=== PATIENT | female | born 1950 | race Caucasian/White ===

== ENCOUNTER → 2017-09-20 | Outpatient (CLI) | payer MEDICARE ==
[~2017-09-20] MED LIST: REGADENOSON 0.4 MG/5 ML DISP.SYRIN. IV
== END | disposition home or self-care (01) ==
LOC: ECHO 07:11
DX: I08.1 Rheumatic disorders of both mitral and tricuspid valves (principal); I10 Essential (primary) hypertension; E11.9 Type 2 diabetes mellitus without complications; R94.31 Abnormal electrocardiogram [ECG] [EKG]; Z79.01 Long term (current) use of anticoagulants
CPT/HCPCS: 93306; 96374; A9500

== ENCOUNTER → 2017-10-11 | Outpatient (CLI) | payer MEDICARE | END | disposition home or self-care (01) | LOC: NM 08:17 | DX: R94.31 Abnormal electrocardiogram [ECG] [EKG] (principal); I10 Essential (primary) hypertension; E11.9 Type 2 diabetes mellitus without complications | CPT/HCPCS: 93017; 93350; J1250 ==

== ENCOUNTER 2020-08-27 22:58 | Observation (INO) | payer MEDICARE ==
[~2020-08-27] VITALS: Ht 154.9 cm; Wt 56.3 kg
[~2020-08-27 22:58] MED LIST changes: +ASPI-630 PO; +GLIM2TAB7 PO; -REGADENOSON 0.4 MG/5 ML DISP.SYRIN. IV
[2020-08-28 00:22] LABS: BASO # 0.1 x10^3/uL (0.0-0.2); BASO % 1 % (0-3); EOS # 0.2 x10^3/uL (0.0-0.7); EOS % 2 % (0-3); HEMATOCRIT 37.3 % (36.0-47.0); HEMOGLOBIN 12.4 g/dL (12.0-15.5); LYMPH # 1.7 x10^3/uL (1.0-4.8); LYMPH % 20 % (24-48); MEAN CORPUSCULAR HEMOGLOBIN 29 pg (25-35); MEAN CORPUSCULAR HGB CONC 33 g/dL (31-37); MEAN CORPUSCULAR VOLUME 86 fL (79-100); MONO # 0.8 x10^3/uL (0.0-1.1); MONO % 10 % (0-9); NEUT % 68 % (31-73); PLATELET COUNT 226 x10^3/uL (140-400); RED BLOOD COUNT 4.33 x10^6/uL (3.50-5.40); RED CELL DISTRIBUTION WIDTH 14.9 % (11.5-14.5); WHITE BLOOD COUNT 8.8 x10^3/uL (4.0-11.0)
[2020-08-28 00:29] LABS: CALCIUM 9.3 mg/dL (8.5-10.1); CREATININE 0.9 mg/dL (0.6-1.0); GFR 62.1; POTASSIUM 4.2 mmol/L (3.5-5.1)
[2020-08-28] MEDS ORDERED: IV NORMAL SALINE 1000ML BAG 1,000 ML IV ONE ×2 (00:30→01:30)
[2020-08-28 00:35] LABS: ALBUMIN 3.4 g/dL (3.4-5.0); TOTAL BILIRUBIN 0.3 mg/dL (0.2-1.0); TOTAL PROTEIN 6.9 g/dL (6.4-8.2)
--- NOTE | 2020-08-28 02:07 | PHYS DOC ---
Past Medical History Past Medical History: Diabetes-Type II, Hypertension, Hypothyroid Past Surgical History: Additional Past Surgical Histo: x 4 Smoking Status: Never Smoker Alcohol Use: None General Adult EDM: Chief Complaint: SYNCOPE HPI: HPI: Patient is a 70 year old female past medical history hypertension hyperlipidemia diabetes presents for evaluation after syncopal episode. Patients dizziness started this evening. Patient states she got up to go to the bathroom but suddenly because dizzy and light headed. Patient states she felt unsteady so instead of proceeding to the bathroom she want back to bed. Later on in the evening patient attempted to go to the bathroom again and had an apparent syncopal episode. states he heard patient stumbling down the [place] hitting the russo. states patient fell into a doorway. Patient states she recalls feeling dizzy lightheaded as if she was going to pass out. Patient denies hitting her head. states patient was confused and had + LOC. On arrival patient is a/ox4. She denies headache, chest pain, or shortness of breath. Review of Systems: Review of Systems: Review of systems: Constitutional symptoms- No fever, no chills. Eyes- No Discharge, No Visual Loss Respiratory symptoms- No shortness of breath, No wheezing, No Dyspnea on Exertion Cardiovascular Systems; No chest pain, No Palpitations,Positive syncope Gastrointestinal symptoms: NO abdominal pain, no nausea, no vomiting or diarrhea. Genitourinary symptoms: No dysuria. Musculoskeletal symptoms: No back pain No extremity pain. NEUROLOGICAL Symptoms: No headache, no generalized weakness; No focal Weakness positive dizziness Heart Score: C/O Chest Pain: N/A Risk Factors: Risk Factors: DM, Current or recent (<one month) smoker, HTN, HLP, family history of CAD, obesity. Risk Scores: Score 0 - 3: 2.5% MACE over next 6 weeks - Discharge Home Score 4 - 6: 20.3% MACE over next 6 weeks - Admit for Clinical Observation Score 7 - 10: 72.7% MACE over next 6 weeks - Early Invasive Strategies Current Medications: Current Medications Medications (Trade) Dose Ordered Sig/Emeka Start Time Stop Time Status Last Admin Dose Admin Sodium Chloride 1,000 ml @ 1,000 mls/hr 1X ONCE 08/28/20 01:30 08/28/20 02:29 Allergies: Allergies: Allergies Coded Allergies Type Severity Reaction Last Updated Verified Penicillins Allergy Mild N/V 09/20/17 Yes Sulfa (Sulfonamide Antibiotics) Allergy Mild N/V 09/20/17 Yes Physical Exam: PE: Constitutional: Well developed, well nourished, no acute distress, non-toxic appearance. [] HENT: Normocephalic, atraumatic, bilateral external ears normal, oropharynx moist, no oral exudates, nose normal. [] Eyes: PERRLA, EOMI, conjunctiva normal, no discharge. [] Neck: Normal range of motion, no tenderness, supple, no stridor. [] Cardiovascular:Heart rate regular rhythm, no murmur [] Lungs & Thorax: Bilateral breath sounds clear to auscultation [] Abdomen: Bowel sounds normal, soft, no tenderness, no masses, no pulsatile masses. [] Skin: Warm, dry, no erythema, no rash. [] Back: No tenderness, no CVA tenderness. [] Extremities: No tenderness, no cyanosis, no clubbing, ROM intact, no edema. [] Neurologic: Alert and oriented X 3, normal motor function, normal sensory f unction, no focal deficits noted. [] Psychologic: Affect normal, judgement normal, mood normal. [] Current Patient Data: Labs: Laboratory Tests Test 08/28/20 00:10 White Blood Count 8.8 x10^3/uL (4.0-11.0) Red Blood Count 4.33 x10^6/uL (3.50-5.40) Hemoglobin 12.4 g/dL (12.0-15.5) Hematocrit 37.3 % (36.0-47.0) Mean Corpuscular Volume 86 fL (79-100) Mean Corpuscular Hemoglobin 29 pg (25-35) Mean Corpuscular Hemoglobin Concent 33 g/dL (31-37) Red Cell Distribution Width 14.9 % (11.5-14.5) H Platelet Count 226 x10^3/uL (140-400) Neutrophils (%) (Auto) 68 % (31-73) Lymphocytes (%) (Auto) 20 % (24-48) L Monocytes (%) (Auto) 10 % (0-9) H Eosinophils (%) (Auto) 2 % (0-3) Basophils (%) (Auto) 1 % (0-3) Neutrophils # (Auto) 6.0 x10^3/uL (1.8-7.7) Lymphocytes # (Auto) 1.7 x10^3/uL (1.0-4.8) Monocytes # (Auto) 0.8 x10^3/uL (0.0-1.1) Eosinophils # (Auto) 0.2 x10^3/uL (0.0-0.7) Basophils # (Auto) 0.1 x10^3/uL (0.0-0.2) Sodium Level 145 mmol/L (136-145) Potassium Level 4.2 mmol/L (3.5-5.1) Chloride Level 106 mmol/L (98-107) Carbon Dioxide Level 31 mmol/L (21-32) Anion Gap 8 (6-14) Blood Urea Nitrogen 21 mg/dL (7-20) H Creatinine 0.9 mg/dL (0.6-1.0) Estimated GFR (Cockcroft-Gault) 62.1 BUN/Creatinine Ratio 23 (6-20) H Glucose Level 129 mg/dL (70-99) H Calcium Level 9.3 mg/dL (8.5-10.1) Total Bilirubin 0.3 mg/dL (0.2-1.0) Aspartate Amino Transferase (AST) 17 U/L (15-37) Alanine Aminotransferase (ALT) 19 U/L (14-59) Alkaline Phosphatase 49 U/L (46-116) Troponin I Quantitative 0.024 ng/mL (0.000-0.055) Total Protein 6.9 g/dL (6.4-8.2) Albumin 3.4 g/dL (3.4-5.0) Albumin/Globulin Ratio 1.0 (1.0-1.7) Laboratory Tests 08/28/20 00:10 Laboratory Tests 08/28/20 00:10 Vital Signs: Vital Signs Date Time Temp Pulse Resp B/P (MAP) Pulse Ox O2 Delivery O2 Flow Rate FiO2 08/28/20 00:09 84 129/57 (81) 08/27/20 23:18 93 08/27/20 23:18 97.8 20 Room Air 97.8 EKG: EK hrs. EKG Heart rate 86 sinus rhythm intraventricular block no ST elevation no ST depression no acute [place] [] Radiology/Procedures: Radiology/Procedures: [] Impression: FINDINGS: No acute intracranial hemorrhage. No mass effect, midline shift or hydrocephalus. Isaac-white matter differentiation is maintained. Unremarkable calvarium. No layering fluid seen within the visualized paranasal sinuses. Unremarkable mastoid air cells and middle ears. IMPRESSION: No acute intracranial abnormality by CT. Course & Med Decision Making: Course & Med Decision Making Pertinent Labs and Imaging studies reviewed. (See chart for details) [] Patient was evaluated for chief complaint. Work-up consisted of laboratory analysis radiologic imaging and EKG. Results reviewed and discussed with patient. CT imaging head no acute abnormalities chest x-ray BNP > 400 DDimer - >1 CTA chest ordered and pending. Patient admitted to hospitalist. Lane Disclaimer: Lane Disclaimer: This electronic medical record was generated, in whole or in part, using a voice recognition dictation system. Departure Departure Impression: Primary Impression: Syncope and collapse Additional Impressions: Dehydration Orthostatic hypotension Disposition: ADMITTED INPATIENT Admitting Physician: JEFFERY Condition: STABLE Referrals: UNKNOWN PCP NAME (PCP) KAYLA PERES DO Aug 28, 2020 02:07
[2020-08-28] MEDS ORDERED: ONDANSETRON PF 4 MG/2 ML VIAL. IV PRN ×2 (02:15→09:30)
--- NOTE | 2020-08-28 02:56 | RAD ---
STUDY: CT head without contrast INDICATION: Syncope. COMPARISON: None. TECHNIQUE: Axial CT imaging through the head without the use of intravenous contrast. Sagittal and co guillermo reformats were obtained. One or more of the following individualized dose reduction techniques were utilized for this examinat ion: 1. Automated exposure control 2. Adjustment of the mA and/or kV according to patient size 3. Use of iterative reconstruction technique. FINDINGS: No acute intracranial hemorrhage. No mass effect, midline shift or hydrocephalus. Isaac-white matter d ifferentiation is maintained. Unremarkable calvarium. No layering fluid seen within the visualized paranasal sinuses. Unremarkable mastoid air cells and middle ears. IMPRESSION: No acute intracranial abnormality by CT. Electronically signed by: POLO RAMESH MD (08/28/2020 2:54 AM) [facility]
--- NOTE | 2020-08-28 03:20 | RAD ---
Study: XR CHEST 1V Indication: Dyspnea. Comparison: None. Findings: The cardiomediastinal silhouette is enlarged. Aortic calcific atherosclerosis. No lobar consolidation or pneumothorax. Poor visualization of the left costophrenic angle favored sec ondary to summation artifact. Normally visualized costophrenic angle on the right. Minimally increase d interstitial markings and peribronchial cuffing. Impression: Enlargement of the cardiomediastinal silhouette and minimal interstitial prominence and peribronchial cuffing. The findings suggest mild interstitial edema. Electronically signed by: POLO RAMESH MD (08/28/2020 3:17 AM) [facility]
[2020-08-28] MEDS ORDERED: IOHEXOL 350 MG/ML 100 ML VIAL. IV ONE (04:30)
[2020-08-28] MEDS ORDERED: CONTRAST GIVEN. MC PRN (04:30)
[2020-08-28] MEDS ORDERED: ATOR10TA60 PO (05:27)
[2020-08-28] MEDS ORDERED: PIOG15TA63 PO (05:27)
[2020-08-28] MEDS ORDERED: LEVO75TA5 PO (05:27)
[2020-08-28] MEDS ORDERED: CALC0.25 PO (05:27)
[2020-08-28] MEDS ORDERED: LISI2.5T PO (05:27)
[2020-08-28] MEDS ORDERED: FLUT16SP NS (05:27)
[2020-08-28] MEDS ORDERED: FURO20TA3 PO (05:27)
[2020-08-28 07:00] VITALS: BP 158/68
--- NOTE | 2020-08-28 07:59 | RAD ---
EXAM: CT angiography of the chest with intravenous contrast. HISTORY: Syncope. Elevated d-dimer. TECHNIQUE: Computed tomographic images of the chest were obtained following the administration of int ravenous contrast according to angiography protocol. Multiplanar reformatting was performed and three dimensional maximum intensity projection images were obtained. *One or more of the following individualized dose reduction techniques were utilized for this examina tion: 1. Automated exposure control. 2. Adjustment of the mA and/or kV according to patient size. 3. Use of iterative reconstruction technique. COMPARISON: None. FINDINGS: There is no evidence of pulmonary metastases. The aorta is normal in caliber. There is no a ortic dissection. The heart is upper normal in size. No convincing lymphadenopathy is seen. There is no pneumothorax or pleural effusion. There is mild biapical pleural parenchymal scarring. There is bi lateral posterior dependent and basilar atelectasis. No consolidation is seen. No suspicious pulmonar y nodule is seen. There is no acute finding involving the upper abdomen. There is no suspicious osseo us lesion. IMPRESSION: 1. No evidence of pulmonary embolism or alternative acute thoracic finding. 2. Bilateral posterior dependent and basilar atelectasis. Electronically signed by: Monica Adam MD (08/28/2020 7:57 AM) [id number]
--- NOTE | 2020-08-28 09:07 | PDOC1 ---
History and Physical Date of Admission Date of Admission DATE: 08/28/20 TIME: 09:05 Identification/Chief Complaint Chief Complaint syncope with very briefLOC 4-23 pm, dizziness, fatigue History of Present Illness History of Present Illness 70 year old female past medical history hypertension hyperlipidemia diabetes presents for evaluation after brief syncopal episode. Patients dizziness start ed last evening. , states she got up to go to the bathroom but suddenly because dizzy and light headed. she felt unsteady so instead of proceeding to the bathroom she went back to bed., later had a syncopal episode on second trip to bathroom states patient was confused and had + very brief LOC does't think she was totally out, no seizure activity noted by him.// CTA CHEST NEG FOR PE, ECHO 2018 REVIEWED c/w diastolic chf, MILD TROPONIN I ELEVATION NOTED, no tongue biting noted by patient Cardiology and neurology consulted, d-dimer 1.16, glucose 129 here old records reviewed she has felt tired for several months, has had chronic low back pain plan= admit, troponin trend, consults to cardiology, neurology will doppler carotids, plan echo, neurochecks q 4 hrs, monitor for orthostasis, tele bed Past Medical History Cardiovascular: HTN, Syncope Pulmonary: No pertinent hx Heme/Onc: No pertinent hx Hepatobiliary: No pertinent hx Psych: No pertinent hx Musculoskeletal: Osteoarthritis Infectious disease: No pertinent hx ENT: No pertinent hx Renal/: Chronic renal insuff Endocrine: Diabetes Family History Family History: Hypertension Social History Smoke: No ALCOHOL: none Drugs: None Current Problem List Problem List Problems Medical Problems: (1) Dehydration Status: Acute (2) Orthostatic hypotension Status: Acute (3) Syncope and collapse Status: Acute Current Medications Current Medications Current Medications Sodium Chloride 1,000 ml @ 1,000 mls/hr 1X ONCE IV Last administered on 08/28/20at 00:15; Start 08/28/20 at 00:30; Stop 08/28/20 at 01:29; Status DC Sodium Chloride 1,000 ml @ 1,000 mls/hr 1X ONCE IV Last administered on 08/28/20at 02:19; Start 08/28/20 at 01:30; Stop 08/28/20 at 02:29; Status DC Ondansetron HCl (Zofran) 4 mg PRN Q8HRS PRN IV NAUSEA/VOMITING 1ST CHOICE; Start 08/28/20 at 02:15; Stop 08/29/20 at 02:14 Iohexol (Omnipaque 350 Mg/ml) 100 ml 1X ONCE IV Last administered on 08/28/20at 06:10; Start 08/28/20 at 04:30; Stop 08/28/20 at 04:31; Status DC Info (CONTRAST GIVEN -- Rx MONITORING) 1 each PRN DAILY PRN MC SEE COMMENTS; Start 08/28/20 at 04:30; Stop 08/30/20 at 04:29 Active Scripts Active Reported Fluticasone Propionate Nasal Anthon (Fluticasone Propionate) 16 Gm Anthon.susp 2 Sprays NS DAILY PRN Levothyroxine Sodium 75 Mcg Tablet 1 Tab PO QAM Lisinopril 2.5 Mg Tablet 1 Tab PO DAILY Pioglitazone Hcl 15 Mg Tablet 1 Tab PO DAILY Atorvastatin Calcium 10 Mg Tablet 1 Tab PO DAILY Furosemide 20 Mg Tablet 1 Tab PO DAILY Calcitriol 0.25 Mcg Capsule 1 Cap PO DAILY Aspirin 81 Mg Tab.chew 1 Tab PO DAILY Allergies Allergies: Coded Allergies: Penicillins (Verified Allergy, Mild, N/V, 09/20/17) Sulfa (Sulfonamide Antibiotics) (Verified Allergy, Mild, N/V, 09/20/17) ROS General: No: Chills, Night Sweats, Fatigue, Malaise, Appetite, Other PSYCHOLOGICAL ROS: No: Anxiety, Behavioral Disorder, Concentration difficultie, Decreased libido, Depression, Disorientation, Hallucinations, Hostility, Irritablity, Memory difficulties, Mood Swings, Obsessive thoughts, Physical abuse, Sexual abuse, Sleep disturbances, Suicidal ideation, Other Eyes: No Blurry vision, No Decreased vision, No Double vision, No Dry eyes, No Excessive tearing, No Eye Pain, No Itchy Eyes, No Loss of vision, No Photophobia, No Scotomata, No Uses contacts, No Uses glasses, No Other HEENT: No: Heacaches, Visual Changes, Hearing change, Nasal congestion, Nasal discharge, Oral lesions, Sinus pain, Sore Throat, Epistaxis, Sneezing, Snoring, Tinnitus, Vertigo, Vocal changes, Other ALLERGY AND IMMUNOLOGY: YES: Hives; No: Insect Bite Sensitivity, Itchy/Watery Eyes, Nasal Congestion, Post Nasal Drip, Seasonal Allergies, Other Hematological and Lymphatic: No: Bleeding Problems, Blood Clots, Blood Transfusions, Brusing, Night Sweats, Pallor, Swollen Lymph Nodes, Other ENDOCRINE: No: Breast Changes, Galactorrhea, Hair Pattern Changes, Hot Flashes, Malaise/lethargy, Mood Swings, Palpitations, Polydipsia/polyuria, Skin Changes, Temperature Intolerance, Unexpected Weight Changes, Other Respiratory: No: Cough, Hemoptysis, Orthopnea, Pleuritic Pain, Shortness of breath, SOB with excertion, Sputum Changes, Stridor, Tachypnea, Wheezing, Other Cardiovascular: No Chest Pain, No Palpitations, No Orthopnea, No Paroxysmal Noc. Dyspnea, No Edema, No Lt Headedness, No Other Gastrointestinal: No Nausea, No Vomiting, No Abdominal Pain, No Diarrhea, No Constipation, No Melena, No Hematochezia, No Other Musculoskeletal: Yes Gait Disturbance Neurological: Yes Dizziness; No Behavorial Changes, No Bowel/Bladder ControlChng, No Confusion, No Gait Disturbance, No Headaches, No Impaired Coord/balance, No Memory Loss, No Numbness/Tingling, No Seizures, No Speech Problems, No Tremors, No Visual Changes, No Weakness, No Other Skin: No Dry Skin, No Eczema, No Hair Changes, No Lumps, No Mole Changes, No Mottling, No Nail Changes, No Pruritus, No Rash, No Skin Lesion Changes, No Other, No Acne Physical Exam Physical Exam Constitutional: Well developed, well nourished, no acute distress, non-toxic appearance. [] HENT: Normocephalic, atraumatic, bilateral external ears normal, oropharynx moist, no oral exudates, nose normal. [] Eyes: PERRLA, EOMI, conjunctiva normal, no discharge. [] Neck: Normal range of motion, no tenderness, supple, no stridor. [] Cardiovascular:Heart rate regular rhythm, no murmur [] Lungs & Thorax: Bilateral breath sounds clear to auscultation [] Abdomen: Bowel sounds normal, soft, no tenderness, no masses, no pulsatile masses. [] Skin: Warm, dry, no erythema, no rash. [] Back: No tenderness, no CVA tenderness. [] Extremities: No tenderness, no cyanosis, no clubbing, ROM intact, no edema. [] Neurologic: Alert and oriented X 3, normal motor function, normal sensory function, no focal deficits noted. [] Psychologic: Affect normal, judgment normal, mood normal. [] General: Alert, Oriented X3, Cooperative Breasts: Not examined Abdomen: Normal bowel sounds, Soft Rectal Exam: not examined Extremities: No cyanosis Neuro: Normal speech, Cranial nerves 3-12 NL Psych/Mental Status: Mental status NL, Mood NL Vitals Vitals Vital Signs Date Time Temp Pulse Resp B/P (MAP) Pulse Ox O2 Delivery O2 Flow Rate FiO2 08/28/20 07:00 98.3 80 17 158/68 (98) 99 Nasal Cannula 2.0 98.3 Labs Labs Laboratory Tests Test 08/28/20 00:10 08/28/20 06:30 White Blood Count 8.8 x10^3/uL (4.0-11.0) Red Blood Count 4.33 x10^6/uL (3.50-5.40) Hemoglobin 12.4 g/dL (12.0-15.5) Hematocrit 37.3 % (36.0-47.0) Mean Corpuscular Volume 86 fL (79-100) Mean Corpuscular Hemoglobin 29 pg (25-35) Mean Corpuscular Hemoglobin Concent 33 g/dL (31-37) Red Cell Distribution Width 14.9 % (11.5-14.5) Platelet Count 226 x10^3/uL (140-400) Neutrophils (%) (Auto) 68 % (31-73) Lymphocytes (%) (Auto) 20 % (24-48) Monocytes (%) (Auto) 10 % (0-9) Eosinophils (%) (Auto) 2 % (0-3) Basophils (%) (Auto) 1 % (0-3) Neutrophils # (Auto) 6.0 x10^3/uL (1.8-7.7) Lymphocytes # (Auto) 1.7 x10^3/uL (1.0-4.8) Monocytes # (Auto) 0.8 x10^3/uL (0.0-1.1) Eosinophils # (Auto) 0.2 x10^3/uL (0.0-0.7) Basophils # (Auto) 0.1 x10^3/uL (0.0-0.2) D-Dimer (Dayanna) 1.16 ug/mlFEU (0.00-0.50) Sodium Level 145 mmol/L (136-145) Potassium Level 4.2 mmol/L (3.5-5.1) Chloride Level 106 mmol/L (98-107) Carbon Dioxide Level 31 mmol/L (21-32) Anion Gap 8 (6-14) Blood Urea Nitrogen 21 mg/dL (7-20) Creatinine 0.9 mg/dL (0.6-1.0) Estimated GFR (Cockcroft-Gault) 62.1 BUN/Creatinine Ratio 23 (6-20) Glucose Level 129 mg/dL (70-99) Calcium Level 9.3 mg/dL (8.5-10.1) Total Bilirubin 0.3 mg/dL (0.2-1.0) Aspartate Amino Transf (AST/SGOT) 17 U/L (15-37) Alanine Aminotransferase (ALT/SGPT) 19 U/L (14-59) Alkaline Phosphatase 49 U/L (46-116) Troponin I Quantitative 0.024 ng/mL (0.000-0.055) 0.088 ng/mL (0.000-0.055) JH-Dll-E-Type Natriuretic Peptide 459 pg/mL (0-124) Total Protein 6.9 g/dL (6.4-8.2) Albumin 3.4 g/dL (3.4-5.0) Albumin/Globulin Ratio 1.0 (1.0-1.7) Laboratory Tests Test 08/28/20 00:10 08/28/20 06:30 White Blood Count 8.8 x10^3/uL (4.0-11.0) Red Blood Count 4.33 x10^6/uL (3.50-5.40) Hemoglobin 12.4 g/dL (12.0-15.5) Hematocrit 37.3 % (36.0-47.0) Mean Corpuscular Volume 86 fL (79-100) Mean Corpuscular Hemoglobin 29 pg (25-35) Mean Corpuscular Hemoglobin Concent 33 g/dL (31-37) Red Cell Distribution Width 14.9 % (11.5-14.5) Platelet Count 226 x10^3/uL (140-400) Neutrophils (%) (Auto) 68 % (31-73) Lymphocytes (%) (Auto) 20 % (24-48) Monocytes (%) (Auto) 10 % (0-9) Eosinophils (%) (Auto) 2 % (0-3) Basophils (%) (Auto) 1 % (0-3) Neutrophils # (Auto) 6.0 x10^3/uL (1.8-7.7) Lymphocytes # (Auto) 1.7 x10^3/uL (1.0-4.8) Monocytes # (Auto) 0.8 x10^3/uL (0.0-1.1) Eosinophils # (Auto) 0.2 x10^3/uL (0.0-0.7) Basophils # (Auto) 0.1 x10^3/uL (0.0-0.2) D-Dimer (Dayanna) 1.16 ug/mlFEU (0.00-0.50) Sodium Level 145 mmol/L (136-145) Potassium Level 4.2 mmol/L (3.5-5.1) Chloride Level 106 mmol/L (98-107) Carbon Dioxide Level 31 mmol/L (21-32) Anion Gap 8 (6-14) Blood Urea Nitrogen 21 mg/dL (7-20) Creatinine 0.9 mg/dL (0.6-1.0) Estimated GFR (Cockcroft-Gault) 62.1 BUN/Creatinine Ratio 23 (6-20) Glucose Level 129 mg/dL (70-99) Calcium Level 9.3 mg/dL (8.5-10.1) Total Bilirubin 0.3 mg/dL (0.2-1.0) Aspartate Amino Transf (AST/SGOT) 17 U/L (15-37) Alanine Aminotransferase (ALT/SGPT) 19 U/L (14-59) Alkaline Phosphatase 49 U/L (46-116) Troponin I Quantitative 0.024 ng/mL (0.000-0.055) 0.088 ng/mL (0.000-0.055) EW-Pxj-A-Type Natriuretic Peptide 459 pg/mL (0-124) Total Protein 6.9 g/dL (6.4-8.2) Albumin 3.4 g/dL (3.4-5.0) Albumin/Globulin Ratio 1.0 (1.0-1.7) Images Images Pulmonary Vein S1 Velocity 64.9cm/s D2 Velocity 48.1cm/s LEFT VENTRICLE The left ventricle is normal size. There is normal left ventricular wall thickness. The left ventricular systolic function is estimated at 50%. Abnormal septal motion probably from bundle branch block. Transmitral Doppler flow p attern is Grade I-abnormal relaxation pattern. RIGHT VENTRICLE The right ventricle is normal size. The right ventricle is mildly hypertrophied. The right ventricular systolic function is normal. ATRIA The left atrium size is normal. The right atrium size is normal. The interatrial septum is intact with no evidence for an atrial septal defect or patent foramen ovale as noted on 2-D or Doppler imaging. AORTIC VALVE The aortic valve is thickened but opens well. Doppler and Color Flow revealed no significant aortic regurgitation. There is no significant aortic valvular stenosis. There is no aortic valvular vegetation. MITRAL VALVE The mitral valve is thickened but opens well. There is no evidence of mitral valve prolapse. There is no mitral valve stenosis. Doppler and Color-flow revealed mild mitral regurgitation. TRICUSPID VALVE The tricuspid valve leaflets are thickened , but open well. Doppler and Color Flow revealed trace tricuspid regurgitation. There is no tricuspid valve prolapse or vegetation. There is no tricuspid valve stenosis. PULMONIC VALVE The pulmonic valve is not well visualized. Doppler and Color Flow revealed mild pulmonic valvular regurgitation. There is no pulmonic valvular stenosis. GREAT VESSELS The aortic root is normal in size. The IVC is normal in size and collapses >50% with inspiration. PERICARDIAL EFFUSION There is no pleural effusion. There is no evidence of significant pericardial effusion. Critical Notification Critical Value: No <Conclusion> Abnormal septal motion probably from bundle branch block. The left ventricular systolic function is estimated at 50%. Transmitral Doppler flow pattern is Grade I-abnormal relaxation pattern. Mild mitral regurgitation. Trace tricuspid regurgitation. There is no evidence of significant pericardial effusion. Signed by : Ashlee Cano, Electronically Approved : 09/20/2017 09:47:43 DICTATED and SIGNED BY: ASHLEE CANO MD DATE: 09/20/17 0947 PROCEDURE: CT HEAD WO CONTRAST STUDY: CT head without contrast INDICATION: Syncope. COMPARISON: None. TECHNIQUE: Axial CT imaging through the head without the use of intravenous contrast. Sagittal and coronal reformats were obtained. One or more of the following individualized dose reduction techniques were utilized for this examination: 1. Automated exposure control 2. Adjustment of the mA and/or kV according to patient size 3. Use of iterative reconstruction technique. FINDINGS: No acute intracranial hemorrhage. No mass effect, midline shift or hydrocephalus. Isaac-white matter differentiation is maintained. Unremarkable calvarium. No layering fluid seen within the visualized paranasal sinuses. Unremarkable mastoid air cells and middle ears. IMPRESSION: No acute intracranial abnormality by CT. Electronically signed by: POLO RAMESH MD (08/28/2020 2:54 AM) [facility] DICTATED and SIGNED BY: POLO RAMESH MD EXAM: CT angiography of the chest with intravenous contrast. HISTORY: Syncope. Elevated d-dimer. TECHNIQUE: Computed tomographic images of the chest were obtained following the administration of intravenous contrast according to angiography protocol. Multiplanar reformatting was performed and three dimensional maximum intensity projection images were obtained. *One or more of the following individualized dose reduction techniques were utilized for this examination: 1. Automated exposure control. 2. Adjustment of the mA and/or kV according to patient size. 3. Use of iterative reconstruction technique. COMPARISON: None. FINDINGS: There is no evidence of pulmonary metastases. The aorta is normal in caliber. There is no aortic dissection. The heart is upper normal in size. No convincing lymphadenopathy is seen. There is no pneumothorax or pleural effusion. There is mild biapical pleural parenchymal scarring. There is bilateral posterior dependent and basilar atelectasis. No consolidation is seen. No suspicious pulmonary nodule is seen. There is no acute finding involving the upper abdomen. There is no suspicious osseous lesion. IMPRESSION: 1. No evidence of pulmonary embolism or alternative acute thoracic finding. 2. Bilateral posterior dependent and basilar atelectasis. Electronically signed by: Monica Samson MD (08/28/2020 7:57 AM) [id number] DICTATED and SIGNED BY: MONICA SAMSON MD DATE: 08/28/20 [id number] VTE Prophylaxis Ordered VTE Prophylaxis Devices: No VTE Pharmacological Prophylaxi: Yes Assessment/Plan Assessment/Plan IMPRESSION: syncopal event 4-23, brief LOC 1. No pulmonary embolism or acute thoracic finding. on CTA chest 2. Bilateral posterior dependent and basilar atelectasis. 3. syncope No acute intracranial abnormality by CT. 4-23 PM, concern for orthostasis, low suspicion for seizure 4. HX DIASTOLIC CHF Left ventricular systolic function is estimated at 50%.Grade I-abnormal relaxation pattern. ON echo 2018 Dobutamine infusion stress echocardiogram did not show any evidence of ischemia or infarct. 2018 5. minimal troponin i elevation, suspect type 2 myocardial strain 6. Diabetes type 2, question of hypoglycemia related to syncope 7. hypertension plan admit tele, OBSERVATION consult cardiology neurochecks q 4 hrs echo neurology consult accuchecks orthostatic bp and pulse bid home meds PT/OT/ST SS INSULIN ADA DIET BEDREST DOPPLER CAROTIDS dvt prophylaxis venous doppler legs IS ua a1c FREE T4 D/W ER DR D/W IN ROOM Justifications for Admission Other Justification KENTRELL BUTLER MD Aug 28, 2020 09:07
[2020-08-28] MEDS ORDERED: ACETAMINOPHEN 325 MG TABLET. PO PRN (09:30)
[2020-08-28] MEDS ORDERED: DEXTROSE 50% 25 GM / 50ML DISP.SYRIN. IV PRN (09:30)
[2020-08-28] MEDS ORDERED: ALBUTEROL SULFATE 2.5 MG/3 ML NEBU. NEB PRN (09:30)
[2020-08-28] MEDS ORDERED: MAG HYDROX/ALUMINUM HYD/SIMETH 30 ML ORAL.SUSP PO PRN (09:30)
[2020-08-28] MEDS ORDERED: FLUTICASONE 50MCG/NASAL SPRAY 16GM BOTTLE. NS PRN (09:30)
[2020-08-28] MEDS ORDERED: 0.9 % SODIUM CHLORIDE 10 ML DISP.SYRIN. IV PRN (09:30)
[2020-08-28] MEDS ORDERED: guaiFENesin ORAL 200 MG/10 ML LIQUID. PO PRN (09:30)
[2020-08-28] MEDS ORDERED: DOCUSATE SODIUM 100 MG CAPSULE. PO PRN (09:30)
[2020-08-28] MEDS ORDERED: SODIUM PHOSPHATES 19/7GM 133 ML ENEMA. PR PRN (09:30)
[2020-08-28] MEDS ORDERED: FUROSEMIDE 20 MG TABLET PO SCH (10:00)
[2020-08-28] MEDS: PIOGLITAZONE 15 MG TABLET. PO SCH (10:04)
[2020-08-28] MEDS: ASPIRIN CHEWABLE 81 MG TABLET. PO SCH (10:04)
[2020-08-28] MEDS: CALCITRIOL 0.25 MCG CAPSULE. PO SCH (10:04)
[2020-08-28] MEDS: ATORVASTATIN CALCIUM 10 MG TABLET. PO SCH (10:05)
[2020-08-28] MEDS: LISINOPRIL 5 MG TABLET. PO SCH (10:05)
[2020-08-28] MEDS: LEVOTHYROXINE 75 MCG TABLET PO SCH (10:05)
--- NOTE | 2020-08-28 10:47 | RAD ---
EXAM: Bilateral lower extremity venous Doppler sonogram. HISTORY: Pain and swelling. TECHNIQUE: Isaac scale and color Doppler sonographic evaluation of the bilateral lower extremity veins with spectral waveform analysis was performed. FINDINGS: There is normal color flow, normal compressibility and there are normal spectral waveforms in the common femoral, superficial femoral, popliteal, posterior tibial and greater saphenous veins. IMPRESSION: No Doppler evidence of lower extremity deep venous thrombosis. Electronically signed by: Monica Adam MD (08/28/2020 10:45 AM) [id number]
--- NOTE | 2020-08-28 10:51 | RAD ---
BILATERAL DUPLEX CAROTID SONOGRAPHY History: Reason: syncope Technique: Duplex sonography of the cervical portion of both carotid arteries was performed. Real-stanislav e grayscale, color flow Doppler, and Doppler spectral waveform analysis is performed. Findings: Right side: Peak systolic flow velocity of the CCA is 53 cm/sec. Peak systolic flow velocity of the ICA is 479 cm/sec. The ICA/CCA ratio is 8.2. Peak end diastolic flow velocity of the ICA is 111 cm/sec. The peak systolic velocity of the ECA is 214 cm/sec. There is moderate echogenic plaque in the carotid bulb. Left side: Peak systolic flow velocity of the CCA is 93 cm/sec. Peak systolic flow velocity of the ICA is 210 cm/sec. The ICA/CCA ratio is 2.3. Peak end diastolic flow velocity of the ICA is 63 cm/sec. Peak systolic flow velocity of the ECA is 154 cm/sec. There is severe echogenic plaque in the carotid bulb. Vertebral arteries: Bilateral vertebral arteries demonstrate antegrade flow. IMPRESSION: 1. Findings indicate a greater than 70 percent stenosis of the right internal carotid artery. [place] is is suspected to be high-grade. 2. Findings suggest a 50-69 percent stenosis of the left ICA. PQRS Compliance Statement - Stenosis calculations for CT, MR and conventional angiography are based u river measurement of the distal ICA diameter in accordance with the NASCET methodology. Stenosis calcu lations for carotid ultrasound studies are derived from validated velocity criteria which are known t o correlate with the NASCET methodology. Electronically signed by: Wayne Vigil MD (08/28/2020 10:49 AM) [id number]
[2020-08-28 11:00] VITALS: BP 152/70
--- NOTE | 2020-08-28 11:39 | EKG ---
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
--- NOTE | 2020-08-28 11:48 | EKG ---
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
[2020-08-28 12:16] VITALS: BP_SYST 126; BP_SYST 197; BP_DIAS 56; BP_DIAS 64
[2020-08-28] MEDS: INSULIN LISPRO 300 UNITS/3 ML VIAL. SQ SCH ×2 (13:07→16:36)
--- NOTE | 2020-08-28 13:09 | PDOC2 ---
NEUROLOGY CONSULT Date of Service DOS: DATE: 08/28/20 TIME: 13:03 Reason for Consult Reason for Consult: Syncope Referring Physician Referring Physician: Dr. Guillermo Source Source: Chart review, Patient History of Present Illness History of Present Illness The patient is a 70-year-old right-handed female who admits that she did not have much to eat yesterday. She skipped breakfast and lunch, then had dinner. She got up in the middle of the night and felt ill. She got up from the bed quickly and felt faint, so laid back down. Then she got right back up. She made it to the door and fell against it. Her heard the door violently open. She slid down the door. She was confused and was completely unconscious for a few moments. No one witnessed any seizure activity or focal neurological issues. Patient remembers fainting once when she was in college, she was ill at that time as well. She feels much better this morning. Past Medical History Cardiovascular: HTN Musculoskeletal: Osteoarthritis Endocrine: Diabetes, Hypothyroidism Past Surgical History Past Surgical History: Family History Family History: Cancer Social History Social History , no alcohol or tobacco, retired Current Medications Current Medications Current Medications Sodium Chloride 1,000 ml @ 1,000 mls/hr 1X ONCE IV Last administered on 08/28/20at 00:15; Start 08/28/20 at 00:30; Stop 08/28/20 at 01:29; Status DC Sodium Chloride 1,000 ml @ 1,000 mls/hr 1X ONCE IV Last administered on at 02:19; Start 08/28/20 at 01:30; Stop 08/28/20 at 02:29; Status DC Ondansetron HCl (Zofran) 4 mg PRN Q8HRS PRN IV NAUSEA/VOMITING 1ST CHOICE; Start 08/28/20 at 02:15; Stop 08/28/20 at 09:31; Status DC Iohexol (Omnipaque 350 Mg/ml) 100 ml 1X ONCE IV Last administered on 08/28/20at 06:10; Start 08/28/20 at 04:30; Stop 08/28/20 at 04:31; Status DC Info (CONTRAST GIVEN -- Rx MONITORING) 1 each PRN DAILY PRN MC SEE COMMENTS; Start 08/28/20 at 04:30; Stop 08/30/20 at 04:29 Aspirin (Aspirin Chewable) 81 mg DAILY PO Last administered on 08/28/20at 10:04; Start 08/28/20 at 10:00 Atorvastatin Calcium (Lipitor) 10 mg DAILY PO Last administered on 08/28/20at 10:05; Start 08/28/20 at 10:00 Calcitriol (Rocaltrol) 0.25 mcg DAILY PO Last administered on 08/28/20at 10:04; Start 08/28/20 at 10:00 Fluticasone Propionate (Flonase) 2 spray DAILY PRN NS ALLERGIES; Start 08/28/20 at 09:30 Furosemide (Lasix) 20 mg DAILY PO Last administered on 08/28/20 10:04; Start 08/28/20 at 10:00 Levothyroxine Sodium (Synthroid) 75 mcg DAILY06 PO Last administered on 08/28/20 10:05; Start 08/28/20 at 10:00 Pioglitazone HCl (Actos) 15 mg DAILY PO Last administered on 08/28/20at 10:04; Start 08/28/20 at 10:00 Lisinopril (Prinivil) 2.5 mg DAILY PO Last administered on 08/28/20 10:05; Start 08/28/20 at 10:00 Sodium Chloride (Normal Saline Flush) 3 ml QSHIFT PRN IV AFTER MEDS AND BLOOD DRAWS; Start 08/28/20 at 09:30 Ondansetron HCl (Zofran) 4 mg PRN Q4HRS PRN IV NAUSEA/VOMITING; Start 08/28/20 at 09:30 Acetaminophen (Tylenol) 650 mg PRN Q4HRS PRN PO TEMP OVER 100.4F OR MILD PAIN; Start 08/28/20 at 09:30 Al Hydroxide/Mg Hydroxide (Mylanta Plus Xs) 30 ml PRN DAILY PRN PO HEARTBURN / GAS; Start 08/28/20 at 09:30 Sodium Monofluorophosphate (Fleet Adult) 133 ml PRN DAILY PRN [place] CONSTIPATION; Start 08/28/20 at 09:30 Docusate Sodium (Colace) 100 mg PRN BID PRN PO HARD STOOLS; Start 08/28/20 at 09:30 Albuterol Sulfate (Ventolin Neb Soln) 2.5 mg PRN Q4HRS PRN NEB SHORTNESS OF BREATH; Start 08/28/20 at 09:30 Guaifenesin (Robitussin) 200 mg PRN Q4HRS PRN PO COUGH; Start 08/28/20 at 09:30 Enoxaparin Sodium (Lovenox 40mg Syringe) 40 mg Q24H SQ ; Start 08/28/20 at 16:00 Insulin Human Lispro (HumaLOG) 0-5 UNITS TIDWMEALS SQ ; Start 08/28/20 at 12:00 Dextrose (Dextrose 50%-Water Syringe) 12.5 gm PRN Q15MIN PRN IV SEE COMMENTS; Start 08/28/20 at 09:30 Active Scripts Active Reported Fluticasone Propionate Nasal [place] (Fluticasone Propionate) 16 Gm [place].susp 2 Sprays NS DAILY PRN Levothyroxine Sodium 75 Mcg Tablet 1 Tab PO QAM Lisinopril 2.5 Mg Tablet 1 Tab PO DAILY Pioglitazone Hcl 15 Mg Tablet 1 Tab PO DAILY Atorvastatin Calcium 10 Mg Tablet 1 Tab PO DAILY Furosemide 20 Mg Tablet 1 Tab PO DAILY Calcitriol 0.25 Mcg Capsule 1 Cap PO DAILY Aspirin 81 Mg Tab.chew 1 Tab PO DAILY Allergies Allergies: Coded Allergies: Penicillins (Verified Allergy, Mild, N/V, 09/20/17) Sulfa (Sulfonamide Antibiotics) (Verified Allergy, Mild, N/V, 09/20/17) ROS Review of System Negative for fever, chills, weight loss, shortness of breath, chest pain, indigestion, hematochezia, melena, and dysuria. Full 14-point review of systems is negative. Physical Exam Physical Examination General: Well-developed, well-nourished white female in no acute distress HEENT: Normocephalic andatraumatic. Temporal arteriespulsatile and nontender. Neck: Supple without bruit, no meningismus Musculoskeletal: Stability:see neurologic. Gait exam:see neurologic. Tone:see neurologic.Strength:see neurologic. Neurological: Mental Status:intact, orientation, memory, attention span/concentration, language, fund of knowledge normal. Cranial Nerves:Pupils equal and reactive to light, extraocular movements areintact, visual fan are full to confrontation. Facial sensation is normal. There is no facial asymmetry. Vestibulo-ocular reflex is intact. Palate elevates and tongue protrudes in midline. All other cranial related problems are negative except as mentioned before.Reflexes:1+ and symmetric with flexor plantar responses. Motor:5/5 strength with normal tone and bulk. Coordination:Finger-nose finger and uutv-cp-womx testing are normal. Rapid alternating movements and fine finger movements are intact. Gait:Not tested. Sensory:Stocking loss. Vitals VITALS Vital Signs Date Time Temp Pulse Resp B/P (MAP) Pulse Ox O2 Delivery O2 Flow Rate FiO2 08/28/20 12:16 79 18 126/56 (79) 98 Nasal Cannula 2.0 08/28/20 11:00 98.9 98.9 Labs Labs Laboratory Tests Test 08/28/20 00:10 08/28/20 06:30 08/28/20 11:58 White Blood Count 8.8 x10^3/uL (4.0-11.0) Red Blood Count 4.33 x10^6/uL (3.50-5.40) Hemoglobin 12.4 g/dL (12.0-15.5) Hematocrit 37.3 % (36.0-47.0) Mean Corpuscular Volume 86 fL (79-100) Mean Corpuscular Hemoglobin 29 pg (25-35) Mean Corpuscular Hemoglobin Concent 33 g/dL (31-37) Red Cell Distribution Width 14.9 % (11.5-14.5) Platelet Count 226 x10^3/uL (140-400) Neutrophils (%) (Auto) 68 % (31-73) Lymphocytes (%) (Auto) 20 % (24-48) Monocytes (%) (Auto) 10 % (0-9) Eosinophils (%) (Auto) 2 % (0-3) Basophils (%) (Auto) 1 % (0-3) Neutrophils # (Auto) 6.0 x10^3/uL (1.8-7.7) Lymphocytes # (Auto) 1.7 x10^3/uL (1.0-4.8) Monocytes # (Auto) 0.8 x10^3/uL (0.0-1.1) Eosinophils # (Auto) 0.2 x10^3/uL (0.0-0.7) Basophils # (Auto) 0.1 x10^3/uL (0.0-0.2) D-Dimer (Dayanna) 1.16 ug/mlFEU (0.00-0.50) Sodium Level 145 mmol/L (136-145) Potassium Level 4.2 mmol/L (3.5-5.1) Chloride Level 106 mmol/L (98-107) Carbon Dioxide Level 31 mmol/L (21-32) Anion Gap 8 (6-14) Blood Urea Nitrogen 21 mg/dL (7-20) Creatinine 0.9 mg/dL (0.6-1.0) Estimated GFR (Cockcroft-Gault) 62.1 BUN/Creatinine Ratio 23 (6-20) Glucose Level 129 mg/dL (70-99) Calcium Level 9.3 mg/dL (8.5-10.1) Total Bilirubin 0.3 mg/dL (0.2-1.0) Aspartate Amino Transf (AST/SGOT) 17 U/L (15-37) Alanine Aminotransferase (ALT/SGPT) 19 U/L (14-59) Alkaline Phosphatase 49 U/L (46-116) Troponin I Quantitative 0.024 ng/mL (0.000-0.055) 0.088 ng/mL (0.000-0.055) RD-Uhf-C-Type Natriuretic Peptide 459 pg/mL (0-124) Total Protein 6.9 g/dL (6.4-8.2) Albumin 3.4 g/dL (3.4-5.0) Albumin/Globulin Ratio 1.0 (1.0-1.7) Free Thyroxine 1.40 ng/dL (0.76-1.46) Glucose (Fingerstick) 188 mg/dL (70-99) Laboratory Tests Test 08/28/20 00:10 08/28/20 06:30 08/28/20 11:58 White Blood Count 8.8 x10^3/uL (4.0-11.0) Red Blood Count 4.33 x10^6/uL (3.50-5.40) Hemoglobin 12.4 g/dL (12.0-15.5) Hematocrit 37.3 % (36.0-47.0) Mean Corpuscular Volume 86 fL (79-100) Mean Corpuscular Hemoglobin 29 pg (25-35) Mean Corpuscular Hemoglobin Concent 33 g/dL (31-37) Red Cell Distribution Width 14.9 % (11.5-14.5) Platelet Count 226 x10^3/uL (140-400) Neutrophils (%) (Auto) 68 % (31-73) Lymphocytes (%) (Auto) 20 % (24-48) Monocytes (%) (Auto) 10 % (0-9) Eosinophils (%) (Auto) 2 % (0-3) Basophils (%) (Auto) 1 % (0-3) Neutrophils # (Auto) 6.0 x10^3/uL (1.8-7.7) Lymphocytes # (Auto) 1.7 x10^3/uL (1.0-4.8) Monocytes # (Auto) 0.8 x10^3/uL (0.0-1.1) Eosinophils # (Auto) 0.2 x10^3/uL (0.0-0.7) Basophils # (Auto) 0.1 x10^3/uL (0.0-0.2) D-Dimer (Dayanna) 1.16 ug/mlFEU (0.00-0.50) Sodium Level 145 mmol/L (136-145) Potassium Level 4.2 mmol/L (3.5-5.1) Chloride Level 106 mmol/L (98-107) Carbon Dioxide Level 31 mmol/L (21-32) Anion Gap 8 (6-14) Blood Urea Nitrogen 21 mg/dL (7-20) Creatinine 0.9 mg/dL (0.6-1.0) Estimated GFR (Cockcroft-Gault) 62.1 BUN/Creatinine Ratio 23 (6-20) Glucose Level 129 mg/dL (70-99) Calcium Level 9.3 mg/dL (8.5-10.1) Total Bilirubin 0.3 mg/dL (0.2-1.0) Aspartate Amino Transf (AST/SGOT) 17 U/L (15-37) Alanine Aminotransferase (ALT/SGPT) 19 U/L (14-59) Alkaline Phosphatase 49 U/L (46-116) Troponin I Quantitative 0.024 ng/mL (0.000-0.055) 0.088 ng/mL (0.000-0.055) QY-Nsz-V-Type Natriuretic Peptide 459 pg/mL (0-124) Total Protein 6.9 g/dL (6.4-8.2) Albumin 3.4 g/dL (3.4-5.0) Albumin/Globulin Ratio 1.0 (1.0-1.7) Free Thyroxine 1.40 ng/dL (0.76-1.46) Glucose (Fingerstick) 188 mg/dL (70-99) Images Images CT head without contrast INDICATION: Syncope. COMPARISON: None. TECHNIQUE: Axial CT imaging through the head without the use of intravenous contrast. Sagittal and coronal reformats were obtained. One or more of the following individualized dose reduction techniques were utilized for this examination: 1. Automated exposure control 2. Adjustment of the mA and/or kV according to patient size 3. Use of iterative reconstruction technique. FINDINGS: No acute intracranial hemorrhage. No mass effect, midline shift or hydrocephalus. Isaac-white matter differentiation is maintained. Unremarkable calvarium. No layering fluid seen within the visualized paranasal sinuses. Unremarkable mastoid air cells and middle ears. IMPRESSION: No acute intracranial abnormality by CT. BILATERAL DUPLEX CAROTID SONOGRAPHY History: Reason: syncope Technique: Duplex sonography of the cervical portion of both carotid arteries was performed. Real-time grayscale, color flow Doppler, and Doppler spectral waveform analysis is performed. Findings: Right side: Peak systolic flow velocity of the CCA is 53 cm/sec. Peak systolic flow velocity of the ICA is 479 cm/sec. The ICA/CCA ratio is 8.2. Peak end diastolic flow velocity of the ICA is 111 cm/sec. The peak systolic velocity of the ECA is 214 cm/sec. There is moderate echogenic plaque in the carotid bulb. Left side: Peak systolic flow velocity of the CCA is 93 cm/sec. Peak systolic flow velocity of the ICA is 210 cm/sec. The ICA/CCA ratio is 2.3. Peak end diastolic flow velocity of the ICA is 63 cm/sec. Peak systolic flow velocity of the ECA is 154 cm/sec. There is severe echogenic plaque in the carotid bulb. Vertebral arteries: Bilateral vertebral arteries demonstrate antegrade flow. IMPRESSION: 1. Findings indicate a greater than 70 percent stenosis of the right internal carotid artery. Stenosis is suspected to be high-grade. 2. Findings suggest a 50-69 percent stenosis of the left ICA. Assessment/Plan Assessment/Plan Impression: Vasovagal syncope related to dehydration Left carotid stenosis would be considered asymptomatic Diabetic neuropathy Recommendations: CT angiogram Can follow-up with vascular surgery as an outpatient Aim for discharge in the next [address] Guillermo Thank you for letting me help with the patient's care. YOLIE IBARRA MD Aug 28, 2020 13:09
--- NOTE | 2020-08-28 14:39 | PDOC2 ---
CARDIOLOGY CONSULT NOTE DATE OF SERVICE: DATE: 08/28/20 TIME: 14:34 CHIEF COMPLAINT: Nearly passed out HPI: Ms. Man is a pleasant 70-year-old woman with past medical history as noted below who presents to the hospital in the setting of a near syncopal episode. She apparently was in her usual state of health and yesterday did not eat appropriately and skipped breakfast and lunch and on her way to the bathroom felt lightheaded and had some vision changes and was able to get herself to the floor. She thinks she may have been passed out for less than 5 seconds. She denies any associated chest pain, palpitations, orthopnea, PND or lower extremity edema. She does not have any prior history of syncope. She did have exertional dyspnea approximately in 2018 and underwent a stress test at that time which did not reveal any significant pathology. She reports that she is also on a diuretic regimen and she apparently did took her diuretic despite not eating or drinking anything and is currently being admitted for further evaluation of the presenting symptoms. Initial evaluation in the emergency department did not reveal any significant cardiac abnormalities with a stable EKG that revealed sinus rhythm with a left bundle branch block. She was noted to have trivial troponin elevation. Initial CT angiogram of the chest and neurologic work-up thus far has been unremarkable. Cardiology has been asked to evaluate her for elevated troponin and her near syncope. PMHX: 1. type 2 diabetes 2. Hypertension 3. Chronic history of dyspnea and a left bundle branch block SOCHX: No alcohol, tobacco or illicit drug use. She lives with her . FAMHX: Noncontributory CURRENT MEDS: Aspirin, atorvastatin, lisinopril and furosemide ALLERGIES: Allergies Coded Allergies Type Severity Reaction Last Updated Verified Penicillins Allergy Mild N/V 09/20/17 Yes Sulfa (Sulfonamide Antibiotics) Allergy Mild N/V 09/20/17 Yes ROS: Negative for 10 out of 14 systems reviewed unless otherwise mentioned above in HPI PHYSICAL EXAM: Vital Signs/I&O: Vital Signs Date Time Temp Pulse Resp B/P (MAP) Pulse Ox O2 Delivery O2 Flow Rate FiO2 08/28/20 12:16 79 18 126/56 (79) 98 Nasal Cannula 2.0 08/28/20 11:00 98.9 98.9 I & O 08/27/20 08/27/20 08/28/20 15:00 23:00 07:00 Output Total 150 ml Balance -150 ml Physical Exam: The patient appeared well nourished and normally developed. Head exam is unremarkable. No scleral icterus or corneal arcus noted. Neck is without jugular venous distension, thyromegaly, or carotid bruits. Carotid upstrokes are brisk bilaterally. Lungs are clear to auscultation and percussion. Cardiac exam reveals the PMI to be normally sized and situated. Rhythm is regular. First and second heart sounds normal. No murmurs, rubs or gallops. Abdominal exam reveals normal bowel sounds, no masses, no organomegaly and no aortic enlargement. Extremities are nonedematous and both femoral and pedal pulses are normal. Msk: No traumua Neuro: No focal deficits Of note the patient's orthostatic vital signs are positive. DIAGNOSTIC TESTING: EKG reveals sinus rhythm with a left axis deviation and left anterior fascicular block and LVH Previous stress echocardiogram was unremarkable in 2018 CT angio of the chest reveals no significant evidence of pulmonary embolus. No obvious pneumonia or heart failure noted Lower extremity venous Dopplers are unremarkable CT angio of the carotids is pending Carotid duplex scan revealed moderate to severe left-sided stenosis. Cardiac enzymes are mildly elevated at 0.088 and downtrending ASSESSMENT: 1. Near syncope: Likely related to volume status and possible vasovagal component 2. Elevated troponin likely type II 3. Labile blood pressure with positive orthostatic vital signs 4. Type 2 diabetes 5. Dyslipidemia PLAN: 1. At this present time we will stop her furosemide. 2. Continue low-dose lisinopril, aspirin and statin 3. We will obtain an echocardiogram to ensure stable LV function. 4. If her echocardiogram is unremarkable then she can likely be discharged with plan for an outpatient event monitor to ensure no significant arrhythmia. 5. Low suspicion for any neurologic causes but await full neurologic work-up Thank you for this consultation. We will follow along closely with you. ELLE PISANO MD Aug 28, 2020 14:39
[2020-08-28 15:00] VITALS: BP 148/52
[2020-08-28] MEDS: ENOXAPARIN 40 MG/0.4 ML SYRINGE. SQ SCH (16:37)
[2020-08-28 19:00] VITALS: BP 121/60
[2020-08-28 23:00] VITALS: BP 187/66
[2020-08-29] VITALS (7 sets, daily range): BP systolic 109–166; BP diastolic 53–72
[2020-08-29] MEDS: LEVOTHYROXINE 75 MCG TABLET PO SCH (07:14)
[2020-08-29 07:18] LABS: HEMOGLOBIN A1C 9.1 % (4.8-5.6)
[2020-08-29] MEDS: INSULIN LISPRO 300 UNITS/3 ML VIAL. SQ SCH ×3 (08:00→17:07)
[2020-08-29] MEDS ORDERED: IOHEXOL 300 MG/ML 100ML VIAL. IV ONE (08:30)
[2020-08-29] MEDS: ASPIRIN CHEWABLE 81 MG TABLET. PO SCH (10:01)
[2020-08-29] MEDS: CALCITRIOL 0.25 MCG CAPSULE. PO SCH (10:01)
[2020-08-29] MEDS: ATORVASTATIN CALCIUM 10 MG TABLET. PO SCH (10:01)
[2020-08-29] MEDS: PIOGLITAZONE 15 MG TABLET. PO SCH (10:01)
[2020-08-29] MEDS: LISINOPRIL 5 MG TABLET. PO SCH ×2 (10:02→15:19)
--- NOTE | 2020-08-29 10:08 | PDOC ---
PROGRESS NOTES Date of Service: DATE: 08/29/20 TIME: 10:08 Chief Complaint Chief Complaint VTE Prophylaxis Ordered VTE Prophylaxis Devices: No VTE Pharmacological Prophylaxi: Yes Assessment/Plan Assessment/Plan IMPRESSION: syncopal event -23, brief LOC 1. No pulmonary embolism or acute thoracic finding. on CTA chest 2. Bilateral posterior dependent and basilar atelectasis. 3. syncope No acute intracranial abnormality by CT. 4-23 PM, concern for orthostasis, low suspicion for seizure 4. HX DIASTOLIC CHF Left ventricular systolic function is estimated at 50%.Grade I-abnormal relaxation pattern. ON echo 2018 Dobutamine infusion stress echocardiogram did not show any evidence of ischemia or infarct. 2018 5. minimal troponin i elevation, suspect type 2 myocardial strain 6. Diabetes type 2, question of hypoglycemia related to syncope A1C = 9.1 7. hypertension, UNCONTROLLED 197/64 this AM 8. greater than 70 percent stenosis of the right internal carotid artery. Stenosis is suspected to be high-grade. 9. 50-69 percent stenosis of the left ICA. 10. Severe partially calcified atherosclerotic plaque involving the right carotid bulb and proximal right internal carotid artery, resulting in near complete occlusion of the right internal carotid artery approximately 1 cm from the vessel origin. There is relative decreased flow within the remainder of the right internal carotid artery extending to the internal carotid artery terminus. ON cta neck 08-29 plan admit tele, OBSERVATION consult cardiology neurochecks q 4 hrs echo neurology consult accuchecks orthostatic bp and pulse bid home meds PT/OT/ST SS INSULIN ADA DIET BEDREST DOPPLER CAROTIDS dvt prophylaxis venous doppler legs IS ua a1c FREE T4 vascular surg consult CTA HEAD/ NECK reviewed Elective right carotid endarterectomy for stroke prophylaxis She can be released and readmitted when OR time available. DIETARY CONSULT ADD LANTUS 7 UNITS SQ Q HS INC LISINOPRIL to 2.5 mg po bid iv hydralazine prn bp support 4-25 MILD HYPOXIA MAY BE due to atelectasis, cxr today pending, will do 6 min walk as well D/W RN Aim for discharge in the next 24 hours ADD LANTUS 7 UNITS SQ Q HS obtain an echocardiogram to ensure stable LV function. 4-26 28 min pt exam, chart review, > 50% of time spent with exam, chart review, pt care coordination D/W IN ROOM Justifications for Admission Other Justification History of Present Illness History of Present Illness Identification/Chief Complaint Chief Complaint syncope with very briefLOC 4-23 pm, dizziness, fatigue History of Present Illness History of Present Illness 70 year old female past medical history hypertension hyperlipidemia diabetes presents for evaluation after brief syncopal episode. Patients dizziness started last evening. , states she got up to go to the bathroom but suddenly because dizzy and light headed. she felt unsteady so instead of proceeding to the bathroom she went back to bed., later had a syncopal episode on second trip to bathroom states patient was confused and had + very brief LOC does't think she was totally out, no seizure activity noted by him.// CTA CHEST NEG FOR PE, ECHO 2018 REVIEWED c/w diastolic chf, MILD TROPONIN I ELEVATION NOTED, no tongue biting noted by patient Cardiology and neurology consulted, d-dimer 1.16, glucose 129 here old records reviewed she has felt tired for several months, has had chronic low back pain plan= admit, troponin trend, consults to cardiology, neurology will doppler carotids, plan echo, neurochecks q 4 hrs, monitor for orthostasis, tele bed Past Medical History Cardiovascular: HTN, Syncope Pulmonary: No pertinent hx Heme/Onc: No pertinent hx Hepatobiliary: No pertinent hx Psych: No pertinent hx Musculoskeletal: Osteoarthritis Infectious disease: No pertinent hx ENT: No pertinent hx Renal/: Chronic renal insuff Endocrine: Diabetes Family History Family History: Hypertension Social History Smoke: No ALCOHOL: none Drugs: None Current Problem List Problem List Problems Medical Problems: (1) Dehydration Status: Acute (2) Orthostatic hypotension Status: Acute (3) Syncope and collapse Status: Acute Current Medications Current Medications Current Medications Sodium Chloride 1,000 ml @ 1,000 mls/hr 1X ONCE IV Last administered on 08/28/20at 00:15; Start 08/28/20 at 00:30; Stop 08/28/20 at 01:29; Status DC Sodium Chloride 1,000 ml @ 1,000 mls/hr 1X ONCE IV Last administered on 08/28/20at 02:19; Start 08/28/20 at 01:30; Stop 08/28/20 at 02:29; Status DC Ondansetron HCl (Zofran) 4 mg PRN Q8HRS PRN IV NAUSEA/VOMITING 1ST CHOICE; Start 08/28/20 at 02:15; Stop 08/29/20 at 02:14 Iohexol (Omnipaque 350 Mg/ml) 100 ml 1X ONCE IV Last administered on 08/28/20at 06:10; Start 08/28/20 at 04:30; Stop 08/28/20 at 04:31; Status DC Info (CONTRAST GIVEN -- Rx MONITORING) 1 each PRN DAILY PRN MC SEE COMMENTS; Start 08/28/20 at 04:30; Stop 08/30/20 at 04:29 Active Scripts Active Reported Fluticasone Propionate Nasal Overton (Fluticasone Propionate) 16 Gm Overton.susp 2 Sprays NS DAILY PRN Levothyroxine Sodium 75 Mcg Tablet 1 Tab PO QAM Lisinopril 2.5 Mg Tablet 1 Tab PO DAILY Pioglitazone Hcl 15 Mg Tablet 1 Tab PO DAILY Atorvastatin Calcium 10 Mg Tablet 1 Tab PO DAILY Furosemide 20 Mg Tablet 1 Tab PO DAILY Calcitriol 0.25 Mcg Capsule 1 Cap PO DAILY Aspirin 81 Mg Tab.chew 1 Tab PO DAILY Allergies Allergies: Coded Allergies: Penicillins (Verified Allergy, Mild, N/V, 09/20/17) Sulfa (Sulfonamide Antibiotics) (Verified Allergy, Mild, N/V, 09/20/17) ROS General: No: Chills, Night Sweats, Fatigue, Malaise, Appetite, Other PSYCHOLOGICAL ROS: No: Anxiety, Behavioral Disorder, Concentration difficultie, Decreased libido, Depression, Disorientation, Hallucinations, Hostility, Irritablity, Memory difficulties, Mood Swings, Obsessive thoughts, Physical abuse, Sexual abuse, Sleep disturbances, Suicidal ideation, Other Eyes: No Blurry vision, No Decreased vision, No Double vision, No Dry eyes, No Excessive tearing, No Eye Pain, No Itchy Eyes, No Loss of vision, No Photophobia, No Scotomata, No Uses contacts, No Uses glasses, No Other HEENT: No: Heacaches, Visual Changes, Hearing change, Nasal congestion, Nasal discharge, Oral lesions, Sinus pain, Sore Throat, Epistaxis, Sneezing, Snoring, Tinnitus, Vertigo, Vocal changes, Other ALLERGY AND IMMUNOLOGY: YES: Hives; No: Insect Bite Sensitivity, Itchy/Watery Eyes, Nasal Congestion, Post Nasal Drip, Seasonal Allergies, Other Hematological and Lymphatic: No: Bleeding Problems, Blood Clots, Blood Transfusions, Brusing, Night Sweats, Pallor, Swollen Lymph Nodes, Other ENDOCRINE: No: Breast Changes, Galactorrhea, Hair Pattern Changes, Hot Flashes, Malaise/lethargy, Mood Swings, Palpitations, Polydipsia/polyuria, Skin Changes, Temperature Intolerance, Unexpected Weight Changes, Other Respiratory: No: Cough, Hemoptysis, Orthopnea, Pleuritic Pain, Shortness of breath, SOB with excertion, Sputum Changes, Stridor, Tachypnea, Wheezing, Other Cardiovascular: No Chest Pain, No Palpitations, No Orthopnea, No Paroxysmal Noc. Dyspnea, No Edema, No Lt Headedness, No Other Gastrointestinal: No Nausea, No Vomiting, No Abdominal Pain, No Diarrhea, No Constipation, No Melena, No Hematochezia, No Other Musculoskeletal: Yes Gait Disturbance Neurological: Yes Dizziness; No Behavorial Changes, No Bowel/Bladder ControlChng, No Confusion, No Gait Disturbance, No Headaches, No Impaired Coord/balance, No Memory Loss, No Numbness/Tingling, No Seizures, No Speech Problems, No Tremors, No Visual Changes, No Weakness, No Other Skin: No Dry Skin, No Eczema, No Hair Changes, No Lumps, No Mole Changes, No Mottling, No Nail Changes, No Pruritus, No Rash, No Skin Lesion Changes, No Other, No Acne Vitals Vitals Vital Signs Date Time Temp Pulse Resp B/P (MAP) Pulse Ox O2 Delivery O2 Flow Rate FiO2 08/29/20 10:02 72 144/55 08/29/20 08:20 Nasal Cannula 1.0 08/29/20 07:00 98.3 20 100 98.3 Physical Exam Physical Exam Constitutional: Well developed, well nourished, no acute distress, non-toxic appearance. [] HENT: Normocephalic, atraumatic, bilateral external ears normal, oropharynx moist, no oral exudates, nose normal. [] Eyes: PERRLA, EOMI, conjunctiva normal, no discharge. [] Neck: Normal range of motion, no tenderness, supple, no stridor. [] Cardiovascular:Heart rate regular rhythm, no murmur [] Lungs & Thorax: Bilateral breath sounds clear to auscultation [] Abdomen: Bowel sounds normal, soft, no tenderness, no masses, no pulsatile masses. [] Skin: Warm, dry, no erythema, no rash. [] Back: No tenderness, no CVA tenderness. [] Extremities: No tenderness, no cyanosis, no clubbing, ROM intact, no edema. [] Neurologic: Alert and oriented X 3, normal motor function, normal sensory function, no focal deficits noted. [] Psychologic: Affect normal, judgment normal, mood normal. [] General: Alert, Oriented X3, Cooperative Breasts: Not examined Abdomen: Normal bowel sounds, Soft Rectal Exam: not examined Extremities: No cyanosis Neuro: Normal speech, Cranial nerves 3-12 NL Psych/Mental Status: Mental status NL, Mood NL General: Alert, Oriented X3, Cooperative, No acute distress Heart: Regular rate Lungs: Clear Abdomen: Normal bowel sounds, Soft Extremities: No clubbing, No cyanosis Skin: No rashes Labs LABS pt demoing good safety. Stairs Assistance Required * Supervision Number of Stairs * [phone] Stairs Assistive Device * No Device Stairs Comments * Pt navigates stairs with one rail without limitation or difficulty. No sx's noted. Other Information * Pt back in bed at conclusion of session. Pt is not appropriate for therapy services at this time as she is safe with all functional mobility and ADLs. Patient Stated Goal * to go home Rehab Potential to Achieve Goals * Excellent Factors Facilitating Goal Achievement * Motivation level * Supportive caregiver * Prior level of function * Available resources * Response to training Clinical Presentation * Stable Evaluation Complexity Level * Low Complexity Pt/caregiver agrees with plan of care/goals * Yes Patient condition at conclusion of therapy * Pt in bed * Call light in reach * Phone in reach * PtIn no apparent distress * Pt denies further needs Communicated Patient Care With (Name, Title) * Olinda SHAH No Further Skilled P.T. Intervention Required * Eval only-No PT Needs Discharge Recommendations * Home independent Discharge Recommendation - DME * None EXAM: Head and neck CT angiogram with contrast. HISTORY: Syncope. Carotid stenosis on Doppler sonogram. TECHNIQUE: Computed tomographic images of the head and neck were obtained following the administration of intravenous contrast. Three-dimensional maximum intensity projection images were obtained. COMPARISON: Carotid Doppler sonogram dated 08/28/2020. FINDINGS: The visualized aortic arch is normal in caliber. There is a standard aortic arch branching pattern. There is no stenosis of the origin of the aortic arch great vessels. The vertebral arteries are codominant. There is mild partially calcified atherosclerotic plaque involving the distal left vertebral artery at the skull base resulting in less than 50 percent stenosis. The basilar artery is widely patent. There is severe partially calcified atherosclerotic plaque involving the carotid bulb and proximal right internal carotid artery. This results in near complete occlusion of the right internal carotid artery approximately 1 cm from the vessel origin. There is relative decreased flow within the remainder of the right internal carotid artery extending to the ICA terminus. There is less than 50 percent stenosis involving the proximal right external carotid artery. There is moderate to severe partially calcified atherosclerotic plaque involving the left carotid bulb and proximal left internal carotid artery. This results in approximately 50 percent stenosis at the internal carotid artery origin and less than 50 percent stenosis involving the proximal left external carotid artery. There is mild calcified atherosclerotic plaque involving the cavernous left ICA with less than 50 percent stenosis. There is a duplicated or early branching left A2 segment, a normal variant. There is a patent anterior communicating artery. There are patent posterior communicating arteries. No occlusion or significant stenosis is seen involving the intracranial arteries. There is no mass effect or midline shift. There is no hydrocephalus. There is no suspicious enhancing lesion. There is evidence of lens surgery. There is right greater than left maxillary sinus mucosal thickening with small mucous retention cysts. There is a small amount of fluid in the left mastoid air cells. There are degenerative changes involving the cervical spine. No severe foraminal or central canal stenosis is seen. The airways widely patent. The thyroid is unremarkable. The lung apices are unremarkable. IMPRESSION: 1. Severe partially calcified atherosclerotic plaque involving the right carotid bulb and proximal right internal carotid artery, resulting in near complete occlusion of the right internal carotid artery approximately 1 cm from the vessel origin. There is relative decreased flow within the remainder of the right internal carotid artery extending to the internal carotid artery terminus. 2. Moderate partially calcified atherosclerotic plaque involving the left carotid bulb and proximal left internal carotid artery, resulting in approximately 50 percent stenosis at the vessel origin. There is also atherosclerosis resulting in less than 50 percent stenosis within the cavernous left ICA. 3. No evidence of intracranial artery stenosis or stenosis involving the origins or proximal aspects of the arch great vessels or vertebral arteries. 4. No acute intracranial finding. Note is made that MRI is more sensitive for acute infarction. PQRS Compliance Statement - Stenosis calculations for CT, MR and conventional angiography are based upon measurement of the distal ICA diameter in accordance with the NASCET methodology. Stenosis calculations for carotid ultrasound studies are derived from validated velocity criteria which are known to correlate with the NASCET methodology. Electronically signed by: Monica Samson MD (08/29/2020 10:28 AM) [id number] Signed PATIENT: JESSIE LEMUS ACCOUNT: [id number] : 1950 LOCATION: [facility] AGE: 70 SEX: F EXAM STATUS: ADM IN ORD. PHYSICIAN: KAYLA PERES DO REASON: syncope elevated ddimer, OMNI 350 100 ML IV PROCEDURE: CT ANGIOGRAPHY CHEST EXAM: CT angiography of the chest with intravenous contrast. HISTORY: Syncope. Elevated d-dimer. TECHNIQUE: Computed tomographic images of the chest were obtained following the administration of intravenous contrast according to angiography protocol. Multiplanar reformatting was performed and three dimensional maximum intensity projection images were obtained. *One or more of the following individualized dose reduction techniques were utilized for this examination: 1. Automated exposure control. 2. Adjustment of the mA and/or kV according to patient size. 3. Use of iterative reconstruction technique. COMPARISON: None. FINDINGS: There is no evidence of pulmonary metastases. The aorta is normal in caliber. There is no aortic dissection. The heart is upper normal in size. No convincing lymphadenopathy is seen. There is no pneumothorax or pleural effusion. There is mild biapical pleural parenchymal scarring. There is bilateral posterior dependent and basilar atelectasis. No consolidation is seen. No suspicious pulmonary nodule is seen. There is no acute finding involving the upper abdomen. There is no suspicious osseous lesion. IMPRESSION: 1. No evidence of pulmonary embolism or alternative acute thoracic finding. 2. Bilateral posterior dependent and basilar atelectasis. Electronically signed by: Monica Samson MD (08/28/2020 7:57 AM) [id number] DICTATED and SIGNED BY: MONICA SAMSON MD DATE: 08/28/20 [id number] Technique: Duplex sonography of the cervical portion of both carotid arteries was performed. Real-time grayscale, color flow Doppler, and Doppler spectral waveform analysis is performed. Findings: Right side: Peak systolic flow velocity of the CCA is 53 cm/sec. Peak systolic flow velocity of the ICA is 479 cm/sec. The ICA/CCA ratio is 8.2. Peak end diastolic flow velocity of the ICA is 111 cm/sec. The peak systolic velocity of the ECA is 214 cm/sec. There is moderate echogenic plaque in the carotid bulb. Left side: Peak systolic flow velocity of the CCA is 93 cm/sec. Peak systolic flow velocity of the ICA is 210 cm/sec. The ICA/CCA ratio is 2.3. Peak end diastolic flow velocity of the ICA is 63 cm/sec. Peak systolic flow velocity of the ECA is 154 cm/sec. There is severe echogenic plaque in the carotid bulb. Vertebral arteries: Bilateral vertebral arteries demonstrate antegrade flow. IMPRESSION: 1. Findings indicate a greater than 70 percent stenosis of the right internal carotid artery. Stenosis is suspected to be high-grade. 2. Findings suggest a 50-69 percent stenosis of the left ICA. RS Compliance Statement - Stenosis calculations for CT, MR and conventional angiography are based upon measurement of the distal ICA diameter in accordance with the NASCET methodology. Stenosis calculations for carotid ultrasound studies are derived from validated velocity criteria which are known to correlate with the NASCET methodology. Electronically signed by: Wayne Vigil MD (08/28/2020 10:49 AM) [id number] DICTATED and SIGNED BY: WAYNE VIGIL MD DATE: 08/28/20 [id number] Laboratory Tests Test 08/28/20 11:58 08/28/20 12:35 08/28/20 16:35 08/28/20 18:30 Glucose (Fingerstick) 188 mg/dL (70-99) 129 mg/dL (70-99) Troponin I Quantitative 0.084 ng/mL (0.000-0.055) 0.057 ng/mL (0.000-0.055) Test 08/28/20 19:08 08/29/20 07:25 Glucose (Fingerstick) 199 mg/dL (70-99) 112 mg/dL (70-99) Assessment and Plan Assessmemt and Plan Problems Medical Problems: (1) Dehydration Status: Acute (2) Orthostatic hypotension Status: Acute (3) Syncope and collapse Status: Acute Comment Review of Relevant I have reviewed the following items anay (where applicable) has been applied. Labs Laboratory Tests Test 08/28/20 00:10 08/28/20 06:30 08/28/20 11:58 08/28/20 12:35 White Blood Count 8.8 x10^3/uL (4.0-11.0) Red Blood Count 4.33 x10^6/uL (3.50-5.40) Hemoglobin 12.4 g/dL (12.0-15.5) Hematocrit 37.3 % (36.0-47.0) Mean Corpuscular Volume 86 fL (79-100) Mean Corpuscular Hemoglobin 29 pg (25-35) Mean Corpuscular Hemoglobin Concent 33 g/dL (31-37) Red Cell Distribution Width 14.9 % (11.5-14.5) Platelet Count 226 x10^3/uL (140-400) Neutrophils (%) (Auto) 68 % (31-73) Lymphocytes (%) (Auto) 20 % (24-48) Monocytes (%) (Auto) 10 % (0-9) Eosinophils (%) (Auto) 2 % (0-3) Basophils (%) (Auto) 1 % (0-3) Neutrophils # (Auto) 6.0 x10^3/uL (1.8-7.7) Lymphocytes # (Auto) 1.7 x10^3/uL (1.0-4.8) Monocytes # (Auto) 0.8 x10^3/uL (0.0-1.1) Eosinophils # (Auto) 0.2 x10^3/uL (0.0-0.7) Basophils # (Auto) 0.1 x10^3/uL (0.0-0.2) D-Dimer (Dayanna) 1.16 ug/mlFEU (0.00-0.50) Sodium Level 145 mmol/L (136-145) Potassium Level 4.2 mmol/L (3.5-5.1) Chloride Level 106 mmol/L (98-107) Carbon Dioxide Level 31 mmol/L (21-32) Anion Gap 8 (6-14) Blood Urea Nitrogen 21 mg/dL (7-20) Creatinine 0.9 mg/dL (0.6-1.0) Estimated GFR (Cockcroft-Gault) 62.1 BUN/Creatinine Ratio 23 (6-20) Glucose Level 129 mg/dL (70-99) Calcium Level 9.3 mg/dL (8.5-10.1) Total Bilirubin 0.3 mg/dL (0.2-1.0) Aspartate Amino Transf (AST/SGOT) 17 U/L (15-37) Alanine Aminotransferase (ALT/SGPT) 19 U/L (14-59) Alkaline Phosphatase 49 U/L (46-116) Troponin I Quantitative 0.024 ng/mL (0.000-0.055) 0.088 ng/mL (0.000-0.055) 0.084 ng/mL (0.000-0.055) MB-Kli-F-Type Natriuretic Peptide 459 pg/mL (0-124) Total Protein 6.9 g/dL (6.4-8.2) Albumin 3.4 g/dL (3.4-5.0) Albumin/Globulin Ratio 1.0 (1.0-1.7) Hemoglobin A1c 9.1 % (4.8-5.6) Free Thyroxine 1.40 ng/dL (0.76-1.46) Glucose (Fingerstick) 188 mg/dL (70-99) Test 08/28/20 16:35 08/28/20 18:30 08/28/20 19:08 08/29/20 07:25 Glucose (Fingerstick) 129 mg/dL (70-99) 199 mg/dL (70-99) 112 mg/dL (70-99) Troponin I Quantitative 0.057 ng/mL (0.000-0.055) Laboratory Tests Test 08/28/20 11:58 08/28/20 12:35 08/28/20 16:35 08/28/20 18:30 Glucose (Fingerstick) 188 mg/dL (70-99) 129 mg/dL (70-99) Troponin I Quantitative 0.084 ng/mL (0.000-0.055) 0.057 ng/mL (0.000-0.055) Test 08/28/20 19:08 08/29/20 07:25 Glucose (Fingerstick) 199 mg/dL (70-99) 112 mg/dL (70-99) Medications Current Medications Sodium Chloride 1,000 ml @ 1,000 mls/hr 1X ONCE IV Last administered on 08/28/20at 00:15; Start 08/28/20 at 00:30; Stop 08/28/20 at 01:29; Status DC Sodium Chloride 1,000 ml @ 1,000 mls/hr 1X ONCE IV Last administered on 08/28/20at 02:19; Start 08/28/20 at 01:30; Stop 08/28/20 at 02:29; Status DC Ondansetron HCl (Zofran) 4 mg PRN Q8HRS PRN IV NAUSEA/VOMITING 1ST CHOICE; Start 08/28/20 at 02:15; Stop 08/28/20 at 09:31; Status DC Iohexol (Omnipaque 350 Mg/ml) 100 ml 1X ONCE IV Last administered on 08/28/20at 06:10; Start 08/28/20 at 04:30; Stop 08/28/20 at 04:31; Status DC Info (CONTRAST GIVEN -- Rx MONITORING) 1 each PRN DAILY PRN MC SEE COMMENTS; Start 08/28/20 at 04:30; Stop 08/30/20 at 04:29 Aspirin (Aspirin Chewable) 81 mg DAILY PO Last administered on 08/29/20at 10:01; Start 08/28/20 at 10:00 Atorvastatin Calcium (Lipitor) 10 mg DAILY PO Last administered on 08/29/20at 10:01; Start 08/28/20 at 10:00 Calcitriol (Rocaltrol) 0.25 mcg DAILY PO Last administered on 08/29/20at 10:01; Start 08/28/20 at 10:00 Fluticasone Propionate (Flonase) 2 spray DAILY PRN NS ALLERGIES; Start 08/28/20 at 09:30 Furosemide (Lasix) 20 mg DAILY PO Last administered on 08/28/20at 10:04; Start 08/28/20 at 10:00; Stop 08/28/20 at 14:41; Status DC Levothyroxine Sodium (Synthroid) 75 mcg DAILY06 PO Last administered on 08/29/20at 07:14; Start 08/28/20 at 10:00 Pioglitazone HCl (Actos) 15 mg DAILY PO Last administered on 08/29/20at 10:01; Start 08/28/20 at 10:00 Lisinopril (Prinivil) 2.5 mg DAILY PO Last administered on 08/29/20at 10:02; Start 08/28/20 at 10:00 Sodium Chloride (Normal Saline Flush) 3 ml QSHIFT PRN IV AFTER MEDS AND BLOOD DRAWS; Start 08/28/20 at 09:30 Ondansetron HCl (Zofran) 4 mg PRN Q4HRS PRN IV NAUSEA/VOMITING; Start 08/28/20 at 09:30 Acetaminophen (Tylenol) 650 mg PRN Q4HRS PRN PO TEMP OVER 100.4F OR MILD PAIN; Start 08/28/20 at 09:30 Al Hydroxide/Mg Hydroxide (Mylanta Plus Xs) 30 ml PRN DAILY PRN PO HEARTBURN / GAS; Start 08/28/20 at 09:30 Sodium Monofluorophosphate (Fleet Adult) 133 ml PRN DAILY PRN VA CONSTIPATION; Start 08/28/20 at 09:30 Docusate Sodium (Colace) 100 mg PRN BID PRN PO HARD STOOLS; Start 08/28/20 at 09:30 Albuterol Sulfate (Ventolin Neb Soln) 2.5 mg PRN Q4HRS PRN NEB SHORTNESS OF BREATH; Start 08/28/20 at 09:30 Guaifenesin (Robitussin) 200 mg PRN Q4HRS PRN PO COUGH; Start 08/28/20 at 09:30 Enoxaparin Sodium (Lovenox 40mg Syringe) 40 mg Q24H SQ Last administered on 08/28/20at 16:37; Start 08/28/20 at 16:00 Insulin Human Lispro (HumaLOG) 0-5 UNITS TIDWMEALS SQ Last administered on 08/28/20at 13:07; Start 08/28/20 at 12:00 Dextrose (Dextrose 50%-Water Syringe) 12.5 gm PRN Q15MIN PRN IV SEE COMMENTS; Start 08/28/20 at 09:30 Iohexol (Omnipaque 300 Mg/ml) 75 ml 1X ONCE IV Last administered on 08/29/20at 08:30; Start 08/29/20 at 08:30; Stop 08/29/20 at 08:36; Status DC Active Scripts Active Reported Fluticasone Propionate Nasal Overton (Fluticasone Propionate) 16 Gm Overton.susp 2 Sprays NS DAILY PRN Levothyroxine Sodium 75 Mcg Tablet 1 Tab PO QAM Lisinopril 2.5 Mg Tablet 1 Tab PO DAILY Pioglitazone Hcl 15 Mg Tablet 1 Tab PO DAILY Atorvastatin Calcium 10 Mg Tablet 1 Tab PO DAILY Furosemide 20 Mg Tablet 1 Tab PO DAILY Calcitriol 0.25 Mcg Capsule 1 Cap PO DAILY Aspirin 81 Mg Tab.chew 1 Tab PO DAILY Vitals/I & O Vital Sign - Last 24 Hours 08/28/20 08/28/20 08/28/20 08/28/20 11:00 12:16 12:16 15:00 Temp 98.9 98.3 98.9 98.3 Pulse 77 77 79 79 Resp 17 18 18 18 B/P (MAP) 152/70 (97) 197/64 (108) 126/56 (79) 148/52 (84) Pulse Ox 93 97 98 97 O2 Delivery Nasal Cannula Nasal Cannula Nasal Cannula Room Air O2 Flow Rate 2.0 2.0 2.0 08/28/20 08/28/20 08/29/20 08/29/20 19:00 23:00 00:41 03:00 Temp 98.4 98.0 98.6 98.4 98.0 98.6 Pulse 78 75 70 70 Resp 18 18 16 B/P (MAP) 121/60 (80) 187/66 (106) 109/53 (71) 121/58 (79) Pulse Ox 95 95 98 O2 Delivery Room Air Room Air Room Air 08/29/20 08/29/20 08/29/20 07:00 08:20 10:02 Temp 98.3 98.3 Pulse 72 72 Resp 20 B/P (MAP) 144/55 (84) 144/55 Pulse Ox 100 O2 Delivery Room Air Nasal Cannula O2 Flow Rate 1.0 Intake and Output 08/28/20 08/28/20 08/29/20 15:00 23:00 07:00 Output Total 0 ml Balance 0 ml Justicifation of Admission Dx: Justifications for Admission: Justification of Admission Dx: Yes Stroke - Ischemic: Stroke-Ischemic Altered Mental Status: Altered Mental Status KENTRELL BUTLER MD Aug 29, 2020 10:08
--- NOTE | 2020-08-29 10:31 | RAD ---
EXAM: Head and neck CT angiogram with contrast. HISTORY: Syncope. Carotid stenosis on Doppler sonogram. TECHNIQUE: Computed tomographic images of the head and neck were obtained following the administratio n of intravenous contrast. Three-dimensional maximum intensity projection images were obtained. COMPARISON: Carotid Doppler sonogram dated 08/28/2020. FINDINGS: The visualized aortic arch is normal in caliber. There is a standard aortic arch branching pattern. There is no stenosis of the origin of the aortic arch great vessels. The vertebral arteries are codominant. There is mild partially calcified atherosclerotic plaque involving the distal left ve rtebral artery at the skull base resulting in less than 50 percent stenosis. The basilar artery is wi donte patent. There is severe partially calcified atherosclerotic plaque involving the carotid bulb and proximal ri ght internal carotid artery. This results in near complete occlusion of the right internal carotid ar elías approximately 1 cm from the vessel origin. There is relative decreased flow within the remainder of the right internal carotid artery extending to the ICA terminus. There is less than [address] enosis involving the proximal right external carotid artery. There is moderate to severe partially calcified atherosclerotic plaque involving the left carotid bul b and proximal left internal carotid artery. This results in approximately 50 percent stenosis at the internal carotid artery origin and less than 50 percent stenosis involving the proximal left externa l carotid artery. There is mild calcified atherosclerotic plaque involving the cavernous left ICA wit h less than 50 percent stenosis. There is a duplicated or early branching left A2 segment, a normal variant. There is a patent anterio r communicating artery. There are patent posterior communicating arteries. No occlusion or significan t stenosis is seen involving the intracranial arteries. There is no mass effect or midline shift. There is no hydrocephalus. There is no suspicious enhancing lesion. There is evidence of lens surgery. There is right greater than left maxillary sinus mucosal thickening with small mucous retention cysts. There is a small amount of fluid in the left mastoid ai r cells. There are degenerative changes involving the cervical spine. No severe foraminal or central canal stenosis is seen. The airways widely patent. The thyroid is unremarkable. The lung apices are u nremarkable. IMPRESSION: 1. Severe partially calcified atherosclerotic plaque involving the right carotid bulb and proximal ri ght internal carotid artery, resulting in near complete occlusion of the right internal carotid arter y approximately 1 cm from the vessel origin. There is relative decreased flow within the remainder of the right internal carotid artery extending to the internal carotid artery terminus. 2. Moderate partially calcified atherosclerotic plaque involving the left carotid bulb and proximal l eft internal carotid artery, resulting in approximately 50 percent stenosis at the vessel origin. The re is also atherosclerosis resulting in less than 50 percent stenosis within the cavernous left ICA. 3. No evidence of intracranial artery stenosis or stenosis involving the origins or proximal aspects of the arch great vessels or vertebral arteries. 4. No acute intracranial finding. Note is made that MRI is more sensitive for acute infarction. PQRS Compliance Statement - Stenosis calculations for CT, MR and conventional angiography are based u river measurement of the distal ICA diameter in accordance with the NASCET methodology. Stenosis calcu lations for carotid ultrasound studies are derived from validated velocity criteria which are known t o correlate with the NASCET methodology. Electronically signed by: Monica Adam MD (08/29/2020 10:28 AM) [id number]
--- NOTE | 2020-08-29 12:35 | PDOC ---
Provider Note Date of Service: DATE: 08/29/20 TIME: 12:33 Provider Note Vascular consult dictated IMP: 1. asymptomatic critical right ICA stenosis 2. 50-69% stenosis of the left ICA 3. dyslipidemia 4. DM 5. Hypertension Rec: elective right CEA. Operation, risks and benefits explained. She can be released and readmitted when OR time available. Justifications for Admission Other Justification syncope, r/o tia ESTUARDO GRANT II, MD Aug 29, 2020 12:35
--- NOTE | 2020-08-29 13:16 | CONS ---
DATE OF CONSULTATION: CLINICAL HISTORY: This is a 70-year-old female who presents for evaluation. She most likely had a vasovagal reaction resulting in some confusion and faintness. She had no witnessed seizure activity and she has no prior history of stroke. She has had a carotid duplex scan of the carotid arteries as well as a CT angiogram. This revealed a critical stenosis of the right internal carotid artery with a peak systolic velocity of 479, peak diastolic velocity of 111 and a ratio of 8.2. There is 50-69% stenosis on the left with a peak systolic velocity of 210, diastolic velocity of 63 and a ratio of 2.3. These findings are confirmed with CT angiography. There is forward flow in both vertebral arteries. She has had no focal symptoms, which would implicate her carotid artery disease at this point in time. PAST MEDICAL HISTORY: Significant for hypertension, osteoarthritis, diet controlled and medication controlled diabetes, hypothyroidism. PAST SURGICAL HISTORY: Includes . FAMILY HISTORY: Significant for cancer. SOCIAL HISTORY: The patient is . She lives with her . She does not smoke cigarettes or abuse drugs. CURRENT MEDICATIONS: All reviewed. They include baby aspirin daily, atorvastatin, lisinopril and insulin. ALLERGIES: INCLUDE PENICILLIN AND SULFA. REVIEW OF SYSTEMS: A 12-point review of systems, she denies claudication. She denies chest pain. She denies unintentional weight loss and the remainder of the 12-point review of systems is negative. PHYSICAL EXAMINATION: GENERAL: The patient is alert and awake. NECK: Carotids are 2+. ABDOMEN: Soft. EXTREMITIES: Palpable femoral, popliteal and pedal pulses. NEUROLOGIC: No focal deficits. LABORATORY DATA: White count is normal, hemoglobin is 12.4, creatinine is 0.9. IMPRESSION: 1. Asymptomatic, critical right internal carotid stenosis 90% or greater. 2. A 50-69% stenosis on the left. 3. History of hypertension. 4. History of dyslipidemia. RECOMMENDATIONS: 1. Elective right carotid endarterectomy for stroke prophylaxis. The operation, risks, and benefits were explained in detail to both her and her and they wished to proceed on an outpatient basis. 2. She will continue aspirin daily. 3. I will have my nurse coordinator contact her to schedule the procedure to be performed at [facility]. Thank you for allowing me to evaluate the patient. ESTUARDO GRANT MD DR: Caitlin JOB#: [id number] / [id number]
[2020-08-29] MEDS ORDERED: hydrALAZINE 20 MG/ML VIAL. IVP PRN (15:00)
--- NOTE | 2020-08-29 15:15 | RAD ---
EXAM: Chest, single view. HISTORY: Hypoxia. COMPARISON: 08/28/2020 FINDINGS: A frontal view of the chest is obtained. There is no infiltrate, pleural effusion or pneumo thorax. The heart is stable in size. There is a nodule overlying the right lower lobe due to a nipple shadow. IMPRESSION: No acute pulmonary finding. Electronically signed by: Monica Adam MD (08/29/2020 3:12 PM) [id number]
[2020-08-29] MEDS: ENOXAPARIN 40 MG/0.4 ML SYRINGE. SQ SCH (15:16)
[2020-08-29] MEDS ORDERED: INSULIN GLARGINE SYRINGE. SQ SCH (21:00)
--- NOTE | 2020-08-30 00:45 | CARD ---
MR#: [id number] Date of Study: 08/29/2020 Ordering Physician: KENTRELL BUTLER, Referring Physician: KENTRELL BUTLER, Tech: Shana White RDCS APPROVED REPORT EXAM: Two-dimensional and M-mode echocardiogram with Doppler and color Doppler. Other Information Quality : GoodHR: 75bpm Rhythm : NSRTechnically limited study due to body habitus. INDICATION Syncope Congestive Heart Failure 2D DIMENSIONS Left Atrium(2D)3.4 (1.6-4.0cm)IVSd1.1 (0.7-1.1cm) Aortic Root(2D)2.2 (2.0-3.7cm)LVDd3.6 (3.9-5.9cm) LVOT Diameter2.0 (1.8-2.4cm)PWd1.1 (0.7-1.1cm) LA Jfibuu42 (18-58mL)LVDs3.2 (2.5-4.0cm) LVEF(%)42.0 (>50%) Aortic Valve AoV Peak Rey.157.5cm/sAoV VTI34.4cm AO Peak GR.9.9mmHgLVOT Peak Rey.75.8cm/s LVOT VTI 18.20cmAO Mean GR.6mmHg GURDEEP (VTI)1.70cm2 Mitral Valve MV E Wghepigj418.0cm/sMV E Peak Gr.4mmHg MV A Whylrazl669.0cm/sMV [id number] E/A Ratio0.9MVA (PHT)4.38cm2 TDI Lateral E' P. V8.81cm/sMedial E' P. V9.12cm/s E/Lateral E'11.7E/Medial E'11.3 Tricuspid Valve TR P. Albgsqob491ef/sRAP [id number] TR Peak Gr.26yaQwXSPX76jnFm LEFT VENTRICLE The left ventricle cavity is small. There is mild to moderate concentric left ventricular hypertrophy . Left ventricle systolic function is mildly impaired. The Ejection Fraction is 45-50%. Septal motion suggestive of conduction defect. The lateral wall is not well visualized. Otherwise, there is mild g lobal hypokinesis. Tissue Doppler imaging reveals moderate left ventricular diastolic dysfunction. RIGHT VENTRICLE The right ventricle is mildly dilated. There is normal right ventricular wall thickness. The right ve ntricular systolic function is normal. ATRIA The left atrium is mildly dilated. The right atrium size is normal. The interatrial septum is intact with no evidence for an atrial septal defect or patent foramen ovale as noted on 2-D or Doppler imagi ng. AORTIC VALVE The aortic valve is normal in structure and function. Doppler and Color Flow revealed no significant aortic regurgitation. There is no significant aortic valvular stenosis. There is no aortic valvular v egetation. MITRAL VALVE The mitral valve is mildly thickened but Mitral annular calcification is mild to moderate. The mitral valve leaflets are calcified. There is thickening of the chordal apparatus. There is no evidence of mitral valve prolapse. There is no mitral valve stenosis. Doppler and Color Flow revealed mild mitral regurgitation. TRICUSPID VALVE The tricuspid valve is normal in structure and function. Doppler and Color Flow revealed no tricuspid valve regurgitation noted. There is no tricuspid valve prolapse or vegetation. There is no tricuspid valve stenosis. PULMONIC VALVE Doppler and Color Flow revealed mild pulmonic valvular regurgitation. There is no pulmonic valvular s tenosis. GREAT VESSELS The aortic root is normal in size. The ascending aorta is normal in size. The IVC is normal in size a nd collapses >50% with inspiration. PERICARDIAL EFFUSION There is no pleural effusion. There is no evidence of significant pericardial effusion. Critical Notification Critical Value: No <Conclusion> Left ventricle systolic function is mildly impaired. The Ejection Fraction is 45-50%. Septal motion suggestive of conduction defect. The lateral wall is not well visualized. Otherwise, th ere is mild global hypokinesis. Technically very difficult study. Signed by : Abner Rizvi, Electronically Approved : 08/30/2020 00:45:03
[2020-08-30 03:00] VITALS: BP 175/74
[2020-08-30] MEDS: LEVOTHYROXINE 75 MCG TABLET PO SCH (06:14)
[2020-08-30 07:00] VITALS: BP 151/67
[2020-08-30] MEDS: INSULIN LISPRO 300 UNITS/3 ML VIAL. SQ SCH ×2 (08:00→12:17)
--- NOTE | 2020-08-30 08:33 | PDOC ---
PROGRESS NOTES Date of Service DATE: 08/30/20 TIME: 08:29 Assessment Problems Medical Problems: (1) Dehydration Status: Acute (2) Orthostatic hypotension Status: Acute (3) Syncope and collapse Status: Acute PATIENT ALSO SEEN YESTERDAY, NOTE DID NOT REGISTER Vasovagal syncope related to dehydration Severe partially calcified atherosclerotic plaque involving the right carotid bulb and proximal right internal carotid artery, resulting in near complete occlusion of the right internal carotid artery approximately 1 cm from the vessel origin. There is relative decreased flow within the remainder of the right internal carotid artery extending to the internal carotid artery terminus. Moderate partially calcified atherosclerotic plaque involving the left carotid bulb and proximal left internal carotid artery, resulting in approximately 50 percent stenosis. These are considered asymptomatic Diabetic neuropathy Plan Follow-up with vascular surgery as an outpatient Okay for discharge Subjective No complaints Objective Vital Signs Date Time Temp Pulse Resp B/P (MAP) Pulse Ox O2 Delivery O2 Flow Rate FiO2 08/30/20 07:00 97.8 68 18 151/67 (95) 96 97.8 08/30/20 03:00 Room Air 08/29/20 20:15 1.0 Intake and Output 08/30/20 07:00 Intake Total 740 ml Output Total 300 ml Balance 440 ml Intake Oral 740 ml Output Urine Total 300 ml # Voids 3 # Bowel Movements 1 PHYSICAL EXAM Alert. Oriented to time, place and person. PERRL. EOMI. CN: no focal findings. Muscle tone: normal. Muscle strength: 5/5 DTR: 1+ Plantar reflex: Flexor Gait: not examined, but yesterday was normal Sensory exam: Stocking loss. No cerebellar signs elicited. Review of Relevant I have reviewed the following items anay (where applicable) has been applied. Labs Laboratory Tests Test 08/28/20 11:58 08/28/20 12:35 08/28/20 16:35 08/28/20 18:30 Glucose (Fingerstick) 188 mg/dL (70-99) 129 mg/dL (70-99) Troponin I Quantitative 0.084 ng/mL (0.000-0.055) 0.057 ng/mL (0.000-0.055) Test 08/28/20 19:08 08/29/20 07:25 08/29/20 10:07 08/29/20 16:21 Glucose (Fingerstick) 199 mg/dL (70-99) 112 mg/dL (70-99) 197 mg/dL (70-99) 198 mg/dL (70-99) Test 08/29/20 20:26 08/30/20 07:46 Glucose (Fingerstick) 187 mg/dL (70-99) 146 mg/dL (70-99) Laboratory Tests Test 08/29/20 10:07 08/29/20 16:21 08/29/20 20:26 08/30/20 07:46 Glucose (Fingerstick) 197 mg/dL (70-99) 198 mg/dL (70-99) 187 mg/dL (70-99) 146 mg/dL (70-99) Microbiology 08/28/20 Blood Culture - Preliminary, Resulted NO GROWTH AFTER 1 DAY Medications Current Medications Sodium Chloride 1,000 ml @ 1,000 mls/hr 1X ONCE IV Last administered on 08/28/20at 00:15; Start 08/28/20 at 00:30; Stop 08/28/20 at 01:29; Status DC Sodium Chloride 1,000 ml @ 1,000 mls/hr 1X ONCE IV Last administered on 08/28/20at 02:19; Start 08/28/20 at 01:30; Stop 08/28/20 at 02:29; Status DC Ondansetron HCl (Zofran) 4 mg PRN Q8HRS PRN IV NAUSEA/VOMITING 1ST CHOICE; Start 08/28/20 at 02:15; Stop 08/28/20 at 09:31; Status DC Iohexol (Omnipaque 350 Mg/ml) 100 ml 1X ONCE IV Last administered on 08/28/20at 06:10; Start 08/28/20 at 04:30; Stop 08/28/20 at 04:31; Status DC Info (CONTRAST GIVEN -- Rx MONITORING) 1 each PRN DAILY PRN MC SEE COMMENTS; Start 08/28/20 at 04:30; Stop 08/30/20 at 04:29; Status DC Aspirin (Aspirin Chewable) 81 mg DAILY PO Last administered on 08/29/20at 10:01; Start 08/28/20 at 10:00 Atorvastatin Calcium (Lipitor) 10 mg DAILY PO Last administered on 08/29/20at 10:01; Start 08/28/20 at 10:00 Calcitriol (Rocaltrol) 0.25 mcg DAILY PO Last administered on 08/29/20at 10:01; Start 08/28/20 at 10:00 Fluticasone Propionate (Flonase) 2 spray DAILY PRN NS ALLERGIES; Start 08/28/20 at 09:30 Furosemide (Lasix) 20 mg DAILY PO Last administered on 08/28/20at 10:04; Start 08/28/20 at 10:00; Stop 08/28/20 at 14:41; Status DC Levothyroxine Sodium (Synthroid) 75 mcg DAILY06 PO Last administered on 08/30at 06:14; Start 08/28/20 at 10:00 Pioglitazone HCl (Actos) 15 mg DAILY PO Last administered on 08/29/20at 10:01; Start 08/28/20 at 10:00 Lisinopril (Prinivil) 2.5 mg DAILY PO Last administered on 08/29/20at 10:02; Start 08/28/20 at 10:00; Stop 08/29/20 at 14:59; Status DC Sodium Chloride (Normal Saline Flush) 3 ml QSHIFT PRN IV AFTER MEDS AND BLOOD DRAWS; Start 08/28/20 at 09:30 Ondansetron HCl (Zofran) 4 mg PRN Q4HRS PRN IV NAUSEA/VOMITING; Start 08/28/20 at 09:30 Acetaminophen (Tylenol) 650 mg PRN Q4HRS PRN PO TEMP OVER 100.4F OR MILD PAIN; Start 08/28/20 at 09:30 Al Hydroxide/Mg Hydroxide (Mylanta Plus Xs) 30 ml PRN DAILY PRN PO HEARTBURN / GAS; Start 08/28/20 at 09:30 Sodium Monofluorophosphate (Fleet Adult) 133 ml PRN DAILY PRN ID CONSTIPATION; Start 08/28/20 at 09:30 Docusate Sodium (Colace) 100 mg PRN BID PRN PO HARD STOOLS; Start 08/28/20 at 09:30 Albuterol Sulfate (Ventolin Neb Soln) 2.5 mg PRN Q4HRS PRN NEB SHORTNESS OF BREATH; Start 08/28/20 at 09:30 Guaifenesin (Robitussin) 200 mg PRN Q4HRS PRN PO COUGH; Start 08/28/20 at 09:30 Enoxaparin Sodium (Lovenox 40mg Syringe) 40 mg Q24H SQ Last administered on 08/29/20at 15:16; Start 08/28/20 at 16:00 Insulin Human Lispro (HumaLOG) 0-5 UNITS TIDWMEALS SQ Last administered on 08/29/20at 17:07; Start 08/28/20 at 12:00 Dextrose (Dextrose 50%-Water Syringe) 12.5 gm PRN Q15MIN PRN IV SEE COMMENTS; Start 08/28/20 at 09:30 Iohexol (Omnipaque 300 Mg/ml) 75 ml 1X ONCE IV Last administered on 08/29/20at 08:30; Start 08/29/20 at 08:30; Stop 08/29/20 at 08:36; Status DC Insulin Glargine (Lantus Syringe) 7 unit QHS SQ Last administered on 08/29/20at 21:38; Start 08/29/20 at 21:00 Lisinopril (Prinivil) 2.5 mg BID PO Last administered on 08/29/20at 15:19; Start 08/29/20 at 15:00 Hydralazine HCl (Apresoline Inj) 10 mg PRN Q4HRS PRN IVP ELEVATED BP, SEE COMMENTS; Start 08/29/20 at 15:00 Active Scripts Active Reported Fluticasone Propionate Nasal [place] (Fluticasone Propionate) 16 Gm [place].susp 2 Sprays NS DAILY PRN Levothyroxine Sodium 75 Mcg Tablet 1 Tab PO QAM Lisinopril 2.5 Mg Tablet 1 Tab PO DAILY Pioglitazone Hcl 15 Mg Tablet 1 Tab PO DAILY Atorvastatin Calcium 10 Mg Tablet 1 Tab PO DAILY Furosemide 20 Mg Tablet 1 Tab PO DAILY Calcitriol 0.25 Mcg Capsule 1 Cap PO DAILY Aspirin 81 Mg Tab.chew 1 Tab PO DAILY Vitals/I & O Vital Sign - Last 24 Hours 08/29/20 08/29/20 08/29/20 08/29/20 10:02 11:00 15:00 15:19 Temp 98.5 98.1 98.5 98.1 Pulse 72 73 76 76 Resp 20 20 B/P (MAP) 144/55 165/72 (103) 154/68 (96) 154/68 Pulse Ox 100 95 O2 Delivery Room Air Room Air 08/29/20 08/29/20 08/29/20 08/30/20 19:00 20:15 23:00 03:00 Temp 98.6 98.5 98.1 98.6 98.5 98.1 Pulse 77 76 73 Resp 16 16 16 B/P (MAP) 134/63 (86) 166/72 (103) 175/74 (107) Pulse Ox 92 96 96 O2 Delivery Room Air Nasal Cannula Room Air Room Air O2 Flow Rate 1.0 08/30/20 07:00 Temp 97.8 97.8 Pulse 68 Resp 18 B/P (MAP) 151/67 (95) Pulse Ox 96 Intake and Output 08/29/20 08/29/20 08/30/20 15:00 23:00 07:00 Intake Total 360 ml 240 ml 140 ml Output Total 300 ml Balance 360 ml -60 ml 140 ml Images Head and neck CT angiogram with contrast. HISTORY: Syncope. Carotid stenosis on Doppler sonogram. TECHNIQUE: Computed tomographic images of the head and neck were obtained following the administration of intravenous contrast. Three-dimensional maximum intensity projection images were obtained. COMPARISON: Carotid Doppler sonogram dated 08/28/2020. FINDINGS: The visualized aortic arch is normal in caliber. There is a standard aortic arch branching pattern. There is no stenosis of the origin of the aortic arch great vessels. The vertebral arteries are codominant. There is mild partially calcified atherosclerotic plaque involving the distal left vertebral artery at the skull base resulting in less than 50 percent stenosis. The basilar artery is widely patent. There is severe partially calcified atherosclerotic plaque involving the carotid bulb and proximal right internal carotid artery. This results in near complete occlusion of the right internal carotid artery approximately 1 cm from the vessel origin. There is relative decreased flow within the remainder of the right internal carotid artery extending to the ICA terminus. There is less than 50 percent stenosis involving the proximal right external carotid artery. There is moderate to severe partially calcified atherosclerotic plaque involving the left carotid bulb and proximal left internal carotid artery. This results in approximately 50 percent stenosis at the internal carotid artery origin and less than 50 percent stenosis involving the proximal left external carotid artery. There is mild calcified atherosclerotic plaque involving the cavernous left ICA with less than 50 percent stenosis. There is a duplicated or early branching left A2 segment, a normal variant. There is a patent anterior communicating artery. There are patent posterior communicating arteries. No occlusion or significant stenosis is seen involving the intracranial arteries. There is no mass effect or midline shift. There is no hydrocephalus. There is no suspicious enhancing lesion. There is evidence of lens surgery. There is right greater than left maxillary sinus mucosal thickening with small mucous retention cysts. There is a small amount of fluid in the left mastoid air cells. There are degenerative changes involving the cervical spine. No severe foraminal or central canal stenosis is seen. The airways widely patent. The thyroid is unremarkable. The lung apices are unremarkable. IMPRESSION: 1. Severe partially calcified atherosclerotic plaque involving the right carotid bulb and proximal right internal carotid artery, resulting in near complete occlusion of the right internal carotid artery approximately 1 cm from the vessel origin. There is relative decreased flow within the remainder of the right internal carotid artery extending to the internal carotid artery terminus. 2. Moderate partially calcified atherosclerotic plaque involving the left carotid bulb and proximal left internal carotid artery, resulting in approximately 50 percent stenosis at the vessel origin. There is also atherosclerosis resulting in less than 50 percent stenosis within the cavernous left ICA. 3. No evidence of intracranial artery stenosis or stenosis involving the origins or proximal aspects of the arch great vessels or vertebral arteries. 4. No acute intracranial finding. Note is made that MRI is more sensitive for acute infarction. Justicifation of Admission Dx: Justifications for Admission: Justification of Admission Dx: N/A YOLIE IBARRA MD Aug 30, 2020 08:32
[2020-08-30] MEDS: ASPIRIN CHEWABLE 81 MG TABLET. PO SCH (09:41)
[2020-08-30] MEDS: CALCITRIOL 0.25 MCG CAPSULE. PO SCH (09:42)
[2020-08-30] MEDS: LISINOPRIL 5 MG TABLET. PO SCH (09:42)
[2020-08-30] MEDS: PIOGLITAZONE 15 MG TABLET. PO SCH (09:42)
[2020-08-30] MEDS: ATORVASTATIN CALCIUM 10 MG TABLET. PO SCH (09:43)
--- NOTE | 2020-08-30 09:58 | PDOC ---
[facility] PROGRESS NOTE Date of Service DOS: DATE: 08/30/20 TIME: 09:42 Chief Complaint Chief Complaint A/P: Syncopal event 08-27, brief LOC. concern for orthostasis, low suspicion for seizure Bilateral posterior dependent and basilar atelectasis. Chronic DIASTOLIC CHF Left ventricular systolic function is estimated at 50%.Grade I-abnormal relaxation pattern. ON echo 2018 Dobutamine infusion stress echocardiogram did not show any evidence of ischemia or infarct. 2018 Minimal troponin i elevation, suspect type 2 myocardial strain Diabetes type 2, question of hypoglycemia related to syncope A1C = 9.1 Hypertension, UNCONTROLLED 197/64 this AM Severe partially calcified atherosclerotic plaque involving the right carotid bulb and proximal right internal carotid artery, resulting in near complete occlusion of the right internal carotid artery approximately 1 cm from the vessel origin. There is relative decreased flow within the remainder of the right internal carotid artery extending to the internal carotid artery terminus. ON cta neck 08-29 plan Outpatient endarterectomy 28 min pt exam, chart review, > 50% of time spent with exam, chart review, pt care coordination History of Present Illness History of Present Illness Ms Man is a 70 year old female with past medical history hypertension hyperlipidemia diabetes presents for evaluation after brief syncopal episode at home and some dizziness. She got up to go to the bathroom but suddenly because dizzy and light headed. she felt unsteady so instead of proceeding to the b athroom she went back to bed., later had a syncopal episode on second trip to bathroom. states patient was confused and had + very brief LOC does't think she was totally out, no seizure activity noted by him. He brought her to ED for further evaluation. Had no focal neuro deficits noted. CTA CHEST NEG FOR PE, ECHO 2018 REVIEWED c/w diastolic chf, MILD TROPONIN I E LEVATION NOTED, no tongue biting noted by patient Cardiology and neurology consulted, d-dimer 1.16, glucose 129 here old records reviewed Admitted, troponin trended, consults to cardiology, neurology will doppler carotids, plan echo, neurochecks q 4 hrs, monitor for orthostasis, tele bed 08/28: syncope with very brief LOC on 08-27 in the evening, dizziness, fatigue 08/29: CTA neck with severe partially calcified atherosclerotic plaque involving the right carotid bulb and proximal right internal carotid artery, resulting in near complete occlusion of the right internal carotid artery approximately 1 cm from the vessel origin. There is relative decreased flow within the remainder of the right internal carotid artery extending to the internal carotid artery term inus. Moderate partially calcified atherosclerotic plaque involving the left carotid bulb and proximal left internal carotid artery, resulting in approximately 50 percent stenosis. Vascular surgery consulted and family is planning elective outpatient right carotid endarterectomy for asymptomatic carotid disease for stroke prophylaxis. No overnight telemetry events. Afebrile. She has no further loss of consciousness or dizziness. Vitals/I&O Vitals/I&O: Vital Signs Date Time Temp Pulse Resp B/P (MAP) Pulse Ox O2 Delivery O2 Flow Rate FiO2 08/30/20 07:00 97.8 68 18 151/67 (95) 96 97.8 08/30/20 03:00 Room Air 08/29/20 20:15 1.0 I & O 08/29/20 08/29/20 08/30/20 15:00 23:00 07:00 Intake Total 360 ml 240 ml 140 ml Output Total 300 ml Balance 360 ml -60 ml 140 ml Physical Exam Physical Exam: Constitutional: Well developed, well nourished, no acute distress, non-toxic appearance. [] HENT: Normocephalic, atraumatic, bilateral external ears normal, oropharynx moist, no oral exudates, nose normal. [] Eyes: PERRLA, EOMI, conjunctiva normal, no discharge. [] Neck: Normal range of motion, no tenderness, supple, no stridor. [] Cardiovascular:Heart rate regular rhythm, no murmur [] Lungs & Thorax: Bilateral breath sounds clear to auscultation [] Abdomen: Bowel sounds normal, soft, no tenderness, no masses, no pulsatile masses. [] Skin: Warm, dry, no erythema, no rash. [] Back: No tenderness, no CVA tenderness. [] Extremities: No tenderness, no cyanosis, no clubbing, ROM intact, no edema. [] Neurologic: Alert and oriented X 3, normal motor function, normal sensory function, no focal deficits noted. [] Psychologic: Affect normal, judgment normal, mood normal. [] General: Alert, Oriented X3, Cooperative Breasts: Not examined Abdomen: Normal bowel sounds, Soft Rectal Exam: not examined Extremities: No cyanosis Neuro: Normal speech, Cranial nerves 3-12 NL Psych/Mental Status: Mental status NL, Mood NL General: Alert, Oriented X3, Cooperative, No acute distress Heart: Regular rate Lungs: Clear Abdomen: Normal bowel sounds, Soft Extremities: No clubbing, No cyanosis Skin: No rashes Labs Labs: Laboratory Tests Test 08/29/20 10:07 08/29/20 16:21 08/29/20 20:26 08/30/20 07:46 Glucose (Fingerstick) 197 mg/dL (70-99) 198 mg/dL (70-99) 187 mg/dL (70-99) 146 mg/dL (70-99) Assessment and Plan Assessmemt and Plan Problems Medical Problems: (1) Dehydration Status: Acute (2) Orthostatic hypotension Status: Acute (3) Syncope and collapse Status: Acute Comment Review of Relevant I have reviewed the following items anay (where applicable) has been applied. Medications: Current Medications Medications (Trade) Dose Ordered Sig/Emeka Route PRN Reason Start Time Stop Time Status Last Admin Dose Admin Insulin Glargine (Lantus Syringe) 7 unit QHS SQ 08/29/20 21:00 08/29/20 21:38 Lisinopril (Prinivil) 2.5 mg BID PO 08/29/20 15:00 08/29/20 15:19 Justifications for Admission Other Justification syncope, r/o tia ELEONORA ALDANA MD Aug 30, 2020 09:58
--- NOTE | 2020-08-30 10:07 | PDOC3 ---
Discharge Summary Visit Information Date of Admission: Aug 28, 2020 Date of Discharge: Aug 30, 2020 Admitting Diagnosis: Syncope Final Diagnosis Problems Medical Problems: (1) Dehydration Status: Acute (2) Orthostatic hypotension Status: Acute (3) Syncope and collapse Status: Acute Brief Hospital Course Allergies Allergies Coded Allergies Type Severity Reaction Last Updated Verified Penicillins Allergy Mild N/V 09/20/17 Yes Sulfa (Sulfonamide Antibiotics) Allergy Mild N/V 09/20/17 Yes Vital Signs Vital Signs Date Time Temp Pulse Resp B/P (MAP) Pulse Ox O2 Delivery O2 Flow Rate FiO2 08/30/20 07:00 97.8 68 18 151/67 (95) 96 97.8 08/30/20 03:00 Room Air 08/29/20 20:15 1.0 Lab Results Laboratory Tests Test 08/28/20 11:58 08/28/20 12:35 08/28/20 16:35 08/28/20 18:30 Glucose (Fingerstick) 188 mg/dL (70-99) 129 mg/dL (70-99) Troponin I Quantitative 0.084 ng/mL (0.000-0.055) 0.057 ng/mL (0.000-0.055) Test 08/28/20 19:08 08/29/20 07:25 08/29/20 10:07 08/29/20 16:21 Glucose (Fingerstick) 199 mg/dL (70-99) 112 mg/dL (70-99) 197 mg/dL (70-99) 198 mg/dL (70-99) Test 08/29/20 20:26 08/30/20 07:46 Glucose (Fingerstick) 187 mg/dL (70-99) 146 mg/dL (70-99) Laboratory Tests Test 08/29/20 10:07 08/29/20 16:21 08/29/20 20:26 08/30/20 07:46 Glucose (Fingerstick) 197 mg/dL (70-99) 198 mg/dL (70-99) 187 mg/dL (70-99) 146 mg/dL (70-99) Brief Hospital Course Ms Man is a 70 year old female with past medical history hypertension hyperlipidemia diabetes presents for evaluation after brief syncopal episode at home and some dizziness. She got up to go to the bathroom but suddenly because dizzy and light headed. she felt unsteady so instead of proceeding to the bathroom she went back to bed., later had a syncopal episode on second trip to bathroom. states patient was confused and had + very brief LOC does't think she was totally out, no seizure activity noted by him. He brought her to ED for further evaluation. Had no focal neuro deficits noted. CTA CHEST NEG FOR PE, ECHO 2018 REVIEWED c/w diastolic chf, MILD TROPONIN I ELEVATION NOTED, no tongue biting noted by patient Cardiology and neurology consulted, d-dimer 1.16, glucose 129 here old records reviewed Admitted, troponin trended, consults to cardiology, neurology will doppler carotids, plan echo, neurochecks q 4 hrs, monitor for orthostasis, tele bed 08/28: syncope with very brief LOC on 08-27 in the evening, dizziness, fatigue. Echo with EF 45 to 50%, difficult technical study. Small wall motion abnormality. 08/29: CTA neck with severe partially calcified atherosclerotic plaque involving the right carotid bulb and proximal right internal carotid artery, resulting in near complete occlusion of the right internal carotid artery approximately 1 cm from the vessel origin. There is relative decreased flow within the remainder of the right internal carotid artery extending to the internal carotid artery terminus. Moderate partially calcified atherosclerotic plaque involving the left carotid bulb and proximal left internal carotid artery, resulting in approximately 50 percent stenosis. Vascular surgery consulted and family is planning elective outpatient right carotid endarterectomy for asymptomatic carotid disease for stroke prophylaxis. No overnight telemetry events. Afebrile. She has no further loss of consciousness or dizziness. Consults: Cardiology, neurology, vascular surgery Problem list: Syncopal event 08-27, brief LOC. concern for orthostasis, low suspicion for seizure Bilateral posterior dependent and basilar atelectasis. Chronic DIASTOLIC CHF Left ventricular systolic function is estimated at 50%.Grade I-abnormal relaxation pattern. ON echo 2018 Dobutamine infusion stress echocardiogram did not show any evidence of ischemia or infarct. 2018 Minimal troponin i elevation, suspect type 2 myocardial strain Diabetes type 2, question of hypoglycemia related to syncope A1C = 9.1 Hypertension, UNCONTROLLED - element of white coat HTN Severe partially calcified atherosclerotic plaque involving the right carotid bulb and proximal right internal carotid artery, resulting in near complete occlusion of the right internal carotid artery approximately 1 cm from the vessel origin. There is relative decreased flow within the remainder of the right internal carotid artery extending to the internal carotid artery terminus. ON cta neck 08-29 plan Outpatient endarterectomy Discharge Information Condition at Discharge: Improved Follow Up: Weeks (1) Disposition/Orders: D/C to Home Scheduled Aspirin (Aspirin) 81 Mg Tab.chew, 1 TAB PO DAILY, #30 Ref 3 (Reported) Entered as Reported by: RUSLAN ALCANTARA on 09/20/17857 Last Action: Continued on 08/28/20917 by KENTRELL BUTLER MD Atorvastatin Calcium (Atorvastatin Calcium) 10 Mg Tablet, 1 TAB PO DAILY for cholesterol, (Reported) Entered as Reported by: Raz Madera on 08/28/20526 Last Action: Continued on 08/28/20917 by KENTRELL BUTLER MD Calcitriol (Calcitriol) 0.25 Mcg Capsule, 1 CAP PO DAILY for supplement, (Reported) Entered as Reported by: Raz Madera on 08/28/20526 Last Action: Continued on 08/28/20917 by KENTRELL BUTLER MD Levothyroxine Sodium (Levothyroxine Sodium) 75 Mcg Tablet, 1 TAB PO QAM for hypothyroid, (Reported) Entered as Reported by: Raz Madera on 08/28/20526 Last Action: Continued on 08/28/20917 by KENTRELL BUTLER MD Lisinopril (Lisinopril) 2.5 Mg Tablet, 1 TAB PO DAILY for HTN, (Reported) Entered as Reported by: Raz Madera on 08/28/20526 Last Action: Converted on 08/28/20917 by KENTRELL BUTLER MD Pioglitazone Hcl (Pioglitazone Hcl) 15 Mg Tablet, 1 TAB PO DAILY for diabetes, (Reported) Entered as Reported by: Raz Madera on 08/28/20526 Last Action: Continued on 08/28/20917 by KENTRELL BUTLER MD Scheduled PRN Fluticasone Propionate (Fluticasone Propionate Nasal Omro) 16 Gm Omro.susp, 2 SPRAYS NS DAILY PRN for ALLERGIES, (Reported) Entered as Reported by: Raz Madera on 08/28/20526 Last Action: Continued on 08/28/20917 by KENTRELL BUTLER MD Discontinued Medications Furosemide (Furosemide) 20 Mg Tablet, 1 TAB PO DAILY for diuretic, (Reported) Entered as Reported by: Raz Madera on 08/28/20526 Last Action: Continued on 08/28/20917 by KENTRELL BUTLER MD Justicifation of Admission Dx: Justifications for Admission: Justification of Admission Dx: N/A ELEONORA ALDANA MD Aug 30, 2020 10:07
[2020-08-30 10:33] VITALS: BP 159/66
--- NOTE | 2020-08-30 13:02 | PDOC ---
KAILA KHANNA [employer] 08/30/20 1302: CARDIO Progress Notes Date and Time Date of Service 08/30/20 Time of Evaluation 1300 Subjective Subjective: No Chest Pain, No shortness of breath, No Palpitations Vitals Vitals Vital Signs Date Time Temp Pulse Resp B/P (MAP) Pulse Ox O2 Delivery O2 Flow Rate FiO2 08/30/20 10:33 97.9 79 18 159/66 (97) 96 97.9 08/30/20 08:00 Room Air 08/29/20 20:15 1.0 Weight Weight [ ] Input and Output Intake and Output Intake and Output 08/30/20 07:00 Intake Total 740 ml Output Total 300 ml Balance 440 ml Intake Oral 740 ml Output Urine Total 300 ml # Voids 3 # Bowel Movements 1 Laboratory Labs Laboratory Tests Test 08/29/20 16:21 08/29/20 20:26 08/30/20 07:46 08/30/20 11:47 Glucose (Fingerstick) 198 mg/dL (70-99) 187 mg/dL (70-99) 146 mg/dL (70-99) 252 mg/dL (70-99) Microbiology Micro Microbiology 08/28/20 Blood Culture - Preliminary, Resulted NO GROWTH AFTER 1 DAY 08/28/20 Urine Culture - Preliminary, Resulted Physical Exam HEENT: Neck Supple W Full Motion Chest: Symmetric LUNGS: Clear to Auscultation Heart: RRR Abdomen: Soft N/T Extremities: No Edema Neurology: alert, oriented, follow commands Assessment Assessment 1. Near syncope; most probable vasovagal. Echo with LVEF 45-50% with global hypokinesis 2. Mild troponin elevation; peak 0.088. most likely type II, demand ischemia. CP free 3. Labile blood pressure with positive orthostatic vital signs 4. Type 2 diabetes; as per IM 5. Dyslipidemia 6. Carotid arterial disease; outpatient vascular surgery f/u scheduled Recommendations ASA, statin Outpatient event monitor and stress test as arranged Follow up in our office with Dr. De Leon as scheduled Justicifation of Admission Dx: Justifications for Admission: Justification of Admission Dx: N/A ASHLEE DE LEON MD 08/30/20 1439: CARDIO Progress Notes Assessment Assessment Patient seen and examined. Agree with STENOCAPTIONER's assessment and plan. Near syncope most probably vasovagal Slight trop elevation prob demand ischemia 2D echo showed EF 45-50% Plan ischemic evaluation as outpatient KAILA KHANNA APRN Aug 30, 2020 13:02 ASHLEE DE LEON MD Aug 30, 2020 18:47
--- NOTE | 2020-08-30 13:52 | NUR ---
SW following. Discussed with RN, pt from home, room air, ada diet. PT/OT recommending home. Discharge order for home with self care. No further SW needs.
--- NOTE | 2020-08-30 14:09 | NUR ---
PATIENT DISCHARGED HOME W/ INSTRUCTIONS TO FOLLOW UP W/ VASCULAR AND PCP. MEDS REVIEWED. PT STABLE UPON DC. IV REMOVED INTACT.
[2020-09-06] MEDS ORDERED: HYDR-2761 PO (12:06)
[2020-09-07] MEDS ORDERED: HYDR-2761 PO ×2 (10:43→10:44)
== END 2020-08-30 14:10 | disposition home or self-care (01) ==
LOC: ER 22:58 → 6 SOUTH 08-28 02:13
PROVIDERS: ADMIT Family Medicine; ATTEND Family Medicine
DX: E86.0 Dehydration (principal); I95.1 Orthostatic hypotension; J98.11 Atelectasis; I65.22 Occlusion and stenosis of left carotid artery; I11.0 Hypertensive heart disease with heart failure; I50.9 Heart failure, unspecified; E11.40 Type 2 diabetes mellitus with diabetic neuropathy, unspecified; I24.8 Other forms of acute ischemic heart disease; E03.9 Hypothyroidism, unspecified; M19.90 Unspecified osteoarthritis, unspecified site; M79.662 Pain in left lower leg; M79.661 Pain in right lower leg; E78.5 Hyperlipidemia, unspecified; R56.9 Unspecified convulsions; R77.8 Other specified abnormalities of plasma proteins; Z79.4 Long term (current) use of insulin; Z79.82 Long term (current) use of aspirin; Z51.5 Encounter for palliative care; Z79.899 Other long term (current) drug therapy; Z98.891 History of uterine scar from previous surgery
CPT/HCPCS: 36415; 70450; 70496; 70498; 71045; 71275; 80053; 82962; 83036; 83880; 84439; 84484; 85025; 85379; 87040; 87077; 87086; 87186; 93005; 93306; 93880; 93970; 94618; 96360; 96361; 96372; 97161; 97530; 99285; G0238; G0378; J1650; J1815; J7030; Q9967; G0379

== ENCOUNTER → 2020-09-02 | Outpatient (CLI) | payer MEDICARE ==
[2020-08-30 10:33] VITALS: BP 159/66
[~2020-09-02] MED LIST changes: +ATOR10TA60 PO; +CALC0.25 PO; +FLUT16SP NS; +FURO20TA3 PO; +HYDR-2761 PO; +LEVO75TA5 PO; +LISI2.5T PO; +PIOG15TA63 PO
== END ==
LOC: LAB 12:26
PROVIDERS: ATTEND Surgery
DX: Z01.812 Encounter for preprocedural laboratory examination (principal); Z20.822 Contact with and (suspected) exposure to COVID-19; I65.21 Occlusion and stenosis of right carotid artery
CPT/HCPCS: U0003; U0005

== ENCOUNTER → 2021-03-18 | Outpatient (CLI) | payer MEDICARE ==
[2021-02-15 11:00] VITALS: BP 84/71
[~2021-03-18] MED LIST changes: +AMIO200T53 PO; +APIX2.5T PO; +DILT240C33 PO; +LISI10TA16 PO; -LISI2.5T PO; +LISI2.5T12 PO; +METO25TA4 PO; +TRAM50TA PO
--- NOTE | 2021-03-18 13:22 | CARD ---
MR#: [id number] Date of Study: 03/18/2021 Ordering Physician: ASHLEE DE LEON, Referring Physician: ASHLEE DE LEON, Tech: APPROVED REPORT PROCEDURE: Successful implantation of Medtronic reveal Linq loop recorder INDICATIONS: Guiding antiarrhythmic and anticoagulation therapy for atrial fibrillation management PROCEDURE DETAILS: An informed consent was obtained from patient. Patient was brought to the procedure suite and her le ft chest and shoulder were prepped and draped in the usual fashion. 20 mL of 2% lidocaine was infilt rated into the skin and subcutaneous tissues for local anesthesia. An incision was made in the left third intercostal space 1 inch from midsternal line and using the introducer and the prior provided w ith the kit, a Medtronic reveal Linq loop recorder, serial number [id number] was placed in the subcu taneous tissue. The incision was closed using Steri-Strips. Hemostasis was secured. Patient tolera fredrick the procedure well. There were no immediate complications. CONCLUSION: Successful implantation of Medtronic reveal Linq loop recorder for atrial fibrillation management Signed by : Ashlee De Leon, Electronically Approved : 03/18/2021 13:21:57
== END | disposition home or self-care (01) ==
LOC: LINQ 11:16
PROVIDERS: ATTEND Internal Medicine Cardiovascular Disease
DX: I48.91 Unspecified atrial fibrillation (principal); I10 Essential (primary) hypertension; E11.9 Type 2 diabetes mellitus without complications; E03.9 Hypothyroidism, unspecified; M19.90 Unspecified osteoarthritis, unspecified site; Z86.73 Personal history of transient ischemic attack (TIA), and cerebral infarction without residual deficits; Z79.82 Long term (current) use of aspirin; Z79.84 Long term (current) use of oral hypoglycemic drugs; Z79.899 Other long term (current) drug therapy; Z79.01 Long term (current) use of anticoagulants; Z98.890 Other specified postprocedural states; Z88.0 Allergy status to penicillin; Z88.1 Allergy status to other antibiotic agents; Z88.2 Allergy status to sulfonamides; Z88.8 Allergy status to other drugs, medicaments and biological substances
CPT/HCPCS: 33285; C1764